=== PATIENT | female | born 1970 | race African-American/Black ===

== ENCOUNTER 2020-05-31 09:46 | Outpatient (REF) | payer MEDICAID, SELFPAY | END 2020-05-31 09:47 | disposition home or self-care (01) | LOC: HO.LAB 09:46 | PROVIDERS: PCP Internal Medicine Geriatric Medicine; Visit Provider Internal Medicine | DX: Z20.828 Contact with and (suspected) exposure to other viral communicable diseases (principal) | CPT/HCPCS: 87635 ==

== ENCOUNTER 2020-06-07 16:35 | Outpatient (REF) | payer MEDICAID, SELFPAY | END 2020-06-07 16:36 | disposition home or self-care (01) | LOC: HO.LAB 16:35 | PROVIDERS: Visit Provider Internal Medicine | DX: Z20.828 Contact with and (suspected) exposure to other viral communicable diseases (principal) | CPT/HCPCS: 87635 ==

== ENCOUNTER 2020-06-17 14:02 | Outpatient (REF) | payer MEDICAID, SELFPAY | END 2020-06-17 14:03 | disposition home or self-care (01) | LOC: HO.LAB 14:02 | PROVIDERS: PCP Internal Medicine Geriatric Medicine; Visit Provider Internal Medicine | DX: Z20.828 Contact with and (suspected) exposure to other viral communicable diseases (principal) | CPT/HCPCS: C9803; U0003 ==

== ENCOUNTER → 2020-09-09 15:33 | Outpatient (BNVA) | payer MEDICAID, SELFPAY | PROVIDERS: PCP Internal Medicine Geriatric Medicine; Visit Provider Hospitalist ==

== ENCOUNTER → 2020-09-23 13:47 | Outpatient (REF) | payer MEDICAID, SELFPAY | LOC: HO.SL 13:47 | PROVIDERS: PCP Internal Medicine Geriatric Medicine; Visit Provider Hospitalist | DX: Z13.89 Encounter for screening for other disorder (principal) ==

== ENCOUNTER 2021-09-24 17:53 | Emergency (ER) | payer MEDICAID, SELFPAY ==
--- NOTE | ~2021-09-24 | XR_ITS ---
EXAMINATION: XR sacrum coccyx min 2V, XR lumbar spine 2-3V CLINICAL INFORMATION: Pain COMPARISON: CT chest 07/21/2019 TECHNIQUE: 3 views of the lumbar spine. 3 views of the sacrum and coccyx were obtained. XR/XR lumbar spine 2-3V FINDINGS/IMPRESSION: 5 nonrib-bearing lumbar-type vertebral bodies. Lumbar body heights are maintained. Mild wedging of the thoracic vertebral bodies at the thoracolumbar junction however appears similar to prior CT chest. Grade 1 anterolisthesis of L5 on S1. Disc space heights are maintained. Lower lumbosacral facet arthropathy. Paravertebral soft tissues are unremarkable. No sacrococcygeal fracture. No fracture appreciated in the visualized pelvis.
--- NOTE | ~2021-09-24 | XR_ITS ---
EXAMINATION: XR sacrum coccyx min 2V, XR lumbar spine 2-3V CLINICAL INFORMATION: Pain COMPARISON: CT chest 07/21/2019 TECHNIQUE: 3 views of the lumbar spine. 3 views of the sacrum and coccyx were obtained. XR/XR sacrum coccyx min 2V FINDINGS/IMPRESSION: 5 nonrib-bearing lumbar-type vertebral bodies. Lumbar body heights are maintained. Mild wedging of the thoracic vertebral bodies at the thoracolumbar junction however appears similar to prior CT chest. Grade 1 anterolisthesis of L5 on S1. Disc space heights are maintained. Lower lumbosacral facet arthropathy. Paravertebral soft tissues are unremarkable. No sacrococcygeal fracture. No fracture appreciated in the visualized pelvis.
[2021-09-24 18:15] VITALS: BP 180/100; PULSE 89; RESP 24; TEMP 36.7; O2SAT 96; BMI 68.3
--- NOTE | 2021-09-24 20:45 | ED.BACK ---
HPI - Back Pain/Injury General Chief Complaint: Back Pain/Injury Stated Complaint: bad lower back pain Source: patient Mode of arrival: ambulatory Limitations: no limitations History of Present Illness HPI Narrative: 51-year-old female presents with left-sided sciatic pain that has been worsening over the past 2 days. Has had chronic lower back pain and states that now she has sciatica. MD elicited complaint: back pain Pertinent past history: prior back pain Onset (ago): month(s) Timing: constant Severity: moderate Pain scale (0-10): 8 Similar Symptoms Previously: Yes Quality: aching and tingling Location: lumbar spine and sacrum Radiation: left upper leg, right upper leg, left leg below the knee and right leg below the knee Exacerbating factors: movement and walking Relieving factors: none Associated symptoms: denies other symptoms Work related injury: No Related Data Previous Rx's Medication Instructions Recorded albuterol sulfate 90 mcg/actuation 2 puff PO Q6H PRN #8.5 g 09/29/20 aerosol inhaler (ProAir HFA) fluticasone propionate 50 2 spray INTRANASAL DAILY #16 g 09/29/20 mcg/actuation nasal spray,suspension montelukast 10 mg tablet 10 mg PO DAILY #30 tab 09/29/20 cyclobenzaprine 10 mg tablet 10 mg PO TID PRN #20 tab 09/24/21 Allergies Allergy/AdvReac Type Severity Reaction Status Date / Time No Known Allergies Allergy Verified 09/09/20 20:09 [No Known Allergies*] Review of Systems Review of Systems: Constitutional: No Fever, No Chills ENT/Mouth: No Ear Pain, No Hoarseness, No sore throat Eyes: No Eye Pain, No Swelling, No Redness, No Foreign Body Cardiovascular: No Chest Pain, No SOB Respiratory: No Cough, No Dyspnea Gastrointestinal: No Nausea, No Vomiting, No Diarrhea, No abdominal Pain Genitourinary: No Dysuria, No Hematuria Musculoskeletal: positive lower back pain with sciatica left-sided, No Myalgias, No Joint Swelling Skin: No Skin lacerations, No rash Neuro: No Weakness, No Numbness, No Paresthesias, No Loss of Consciousness, No Dizziness, No Headache Psych: No Anxiety/Panic, No Depression Heme/Lymph: no easy bruising, no Lymphadenopathy Endocrine: No Polyuria, No Polydipsia Yes all other systems are reviewed and are negative PMFSH Past Medical History Attestation statement: The following information was validated with the patient. Source: old records reviewed Medical History Asthma Obstructive sleep apnea syndrome Pulmonary nodule Social History Social History Advance Directives: No Advance Directives Information Provided: Yes Patient : No Physical Exam Vital Signs: Vital Signs: Last Vital Signs Temp 98.0 F 09/24/21 18:15 Pulse 89 09/24/21 18:15 Resp 24 H 09/24/21 18:15 BP 180/100 H 09/24/21 18:15 Pulse Ox 96 09/24/21 18:15 BMI result Body Mass Index 68.3 Appearance: Alert. Oriented X3. No acute distress. Morbidly obese. Eyes: Pupils equal, round and reactive to light. Sclera nonicteric. ENT: Pharynx normal. Moist mucous membranes. Neck: Normal inspection. Neck supple. No vertebral step-offs or tenderness noted. CVS: Normal heart rate and rhythm. Pulses normal. Respiratory: No respiratory distress. Breath sounds normal. Abdomen: Soft and nontender. Skin: Skin warm and dry. Normal skin color. Normal skin turgor. Extremities: No lower extremity edema. Moves all extremities against resistance. Neuro: No motor deficit. No sensory deficit. Cranial nerves 2-12 intact. Course Course Course Narrative: 51-year-old female presents with chronic lower back pain with left-sided sciatica. States that her pain is gotten worse over the past 2 days. States that she has numbness, tingling, and difficulty ambulating. She did not report any symptoms indicating cauda equina. Patient isneurovascularly intact, has brisk capillary refill and equal pulses to bilateral lower extremities. Patient is requesting pain medications. I did offer Tylenol, and cyclobenzaprine. Will order x-rays. X-rays indicate lumbar arthropathy, will refer to pain management for chronic lower back pain with sciatica. Patient's daughter utilized as diplomatic interpreter per patient's request. Google translate utilized for discharge instructions. Patient verbalized understanding of and agrees to plan of care discharge home. Patient verbalized understanding of signs and symptoms indicating need for emergent intervention. MDM - Back Pain/Injury Differential Diagnosis Differential diagnosis: Likely lumbar radiculopathy, sciatica and strain of lumbar region Medical Records Attestation: I reviewed the patient's medical records. Imaging Data Lumbar sacral x-ray: Attestation: I personally reviewed and interpreted this imaging study as follows: Radiologist's impression: EXAMINATION: XR sacrum coccyx min 2V, XR lumbar spine 2-3V CLINICAL INFORMATION: Pain COMPARISON: CT chest 07/21/2019 TECHNIQUE: 3 views of the lumbar spine. 3 views of the sacrum and coccyx were obtained. XR/XR lumbar spine 2-3V FINDINGS/IMPRESSION: ? 5 nonrib-bearing lumbar-type vertebral bodies. ? Lumbar body heights are maintained. Mild wedging of the thoracic vertebral bodies at the thoracolumbar junction however appears similar to prior CT chest. Grade 1 anterolisthesis of L5 on S1. ? Disc space heights are maintained. Lower lumbosacral facet arthropathy. ? Paravertebral soft tissues are unremarkable. ? No sacrococcygeal fracture. No fracture appreciated in the visualized pelvis. Discharge Plan Discharge Clinical Impression: Sciatica, Arthritis of facet joint of lumbar spine Patient Disposition: Home, Self-Care Instructions: Sciatica (ED) Additional Instructions: Le evaluaron por dolor lumbar y ci?jose. Sayda radiograf?as indican artritis lumbar inferior. Por favor, isac un seguimiento con el manejo del dolor. Te remit? al Dr. Marie. Por favor llame y solicite leslie darek. Le recet? ciclobenzaprina. Fabby medicamento es un relajante muscular. Fabby medicamento puede retrasar el tiempo de reacci?n, causar somnolencia y aumentar el riesgo de ca?basilio. No conduzca ni maneje maquinaria mientras lola fabby medicamento. Emre por elegir fabby departamento de emergencias para johnson evaluaci?n. Por favor, isac un seguimiento con el m?dico de atenci?n primaria seg?n sea necesario. Regrese al departamento de emergencias por cualquier s?ntoma nuevo, preocupante o que empeore You were evaluated for lower back pain and sciatica. Your x-rays indicate lower lumbar arthritis. Please follow-up with pain management. I referred you to Dr. Marie. Please call and request an appointment. I prescribed cyclobenzaprine. This medication is a muscle relaxer. This medication can delay reaction time, cause drowsiness, and increased risk for falls. Do not drive or operate machinery while taking this medication. Thank you for choosing this emergency department for evaluation. Please follow-up with primary care physician as needed. Return to the emergency department for any new, concerning, or worsening symptoms. Prescriptions: New cyclobenzaprine 10 mg tablet 10 mg PO TID PRN (Reason: muscle spasm) Qty: 20 0RF No Action fluticasone propionate 50 mcg/actuation spray,suspension 2 spray intranasal DAILY Qty: 16 0RF albuterol sulfate [ProAir HFA] 90 mcg/actuation HFA aerosol inhaler 2 puff PO Q6H PRN (Reason: for wheezing) Qty: 8.5 0RF montelukast 10 mg tablet 10 mg PO DAILY Qty: 30 0RF Referrals: Adam Marie MD [Physician] - 2 days (Lumbar arthropathy, sciatica) Interventions: ED Discharge Assessment Last Done: 09/24/21 22:09 Discharge Date/Time: 09/24/21 22:13
[2021-09-24] MEDS: Ketorolac Tromethamine 60 MG/2 ML VIAL IM (21:17)
[2021-09-24] MEDS: Cyclobenzaprine HCl 10 MG TABLET PO (21:17)
== END 2021-09-24 22:13 | disposition home or self-care (01) ==
PROVIDERS: Emergency Provider Emergency Medicine; PCP Internal Medicine Geriatric Medicine
DX: M54.42 Lumbago with sciatica, left side (principal); M47.816 Spondylosis without myelopathy or radiculopathy, lumbar region; G89.29 Other chronic pain
CPT/HCPCS: 72100; 72220; 96372; 99284; J1885

== ENCOUNTER → 2021-10-24 13:51 | Outpatient (BNVA) | payer MEDICAID, SELFPAY | PROVIDERS: PCP Internal Medicine Geriatric Medicine; Visit Provider Nurse Practitioner Family | DX: M47.27 Other spondylosis with radiculopathy, lumbosacral region (principal); M47.812 Spondylosis without myelopathy or radiculopathy, cervical region; M53.3 Sacrococcygeal disorders, not elsewhere classified; M17.0 Bilateral primary osteoarthritis of knee; M25.511 Pain in right shoulder; M25.512 Pain in left shoulder; E66.01 Morbid (severe) obesity due to excess calories; Z68.45 Body mass index [BMI] 70 or greater, adult | CPT/HCPCS: 99202 ==

== ENCOUNTER → 2022-09-11 13:37 | Outpatient (BNVA) | payer MEDICAID, SELFPAY | PROVIDERS: PCP Internal Medicine Geriatric Medicine; Visit Provider Physician Assistant | DX: E66.01 Morbid (severe) obesity due to excess calories (principal); G47.33 Obstructive sleep apnea (adult) (pediatric); J45.20 Mild intermittent asthma, uncomplicated; I10 Essential (primary) hypertension; Z68.44 Body mass index [BMI] 60.0-69.9, adult | CPT/HCPCS: 99202 ==

== ENCOUNTER 2022-09-14 13:14 | Outpatient (REF) | payer MEDICAID, SELFPAY ==
--- NOTE | ~2022-09-14 | MM_ITS ---
EXAMINATION: MM SCREENING DIGITAL BREAST TOMOSYNTHESIS, BILATERAL CLINICAL INFORMATION: Screening. Asymptomatic. The lifetime risk of breast cancer based on the Tyrer-Cuzick Model is 5.8%. COMPARISON: Mammography: March 15, 2019 and June 29, 2017 TECHNIQUE: Digital breast tomosynthesis is performed in both the craniocaudal and mediolateral oblique views along with computer-aided detection (CAD). Synthesized 2D images are generated from the tomosynthesis. Additional bilateral exaggerated craniocaudal views performed. FINDINGS: The breasts are almost entirely fatty (ACR BI-RADS breast composition Category a). There are no significant masses, abnormal calcifications, or other abnormalities. MM/MM tomosynthesis screening BI IMPRESSION: No significant changes from prior exam. ASSESSMENT: BI-RADS 1: Negative RECOMMENDATION: Routine annual mammography screening. This patient's information was entered into a reminder system with a target due date for their next mammogram.
--- NOTE | ~2022-09-14 | US_ITS ---
EXAMINATION: US PELVIS CLINICAL INFORMATION: Pelvic and perineal pain. COMPARISON: None. TECHNIQUE: Ultrasound of the pelvis is performed using both transabdominal and transvaginal transducers along with Doppler. Transvaginal imaging is performed due to inadequate visualization transabdominally. FINDINGS: UTERUS: The uterus is anteverted and measures 9.7 x 5.7 x 4.9 cm. The double wall endometrial thickness is 0.7 mm. The uterus is smooth in contour and has normal myometrial echogenicity. No visible fibroid. A tiny bit of free fluid was noted in the cervical canal along with some small nabothian cysts. ADNEXA: Neither ovary could be seen. US/US pelvic and transvaginal IMPRESSION: Normal-appearing uterus. Neither ovary could be seen.
== END 2022-09-14 13:15 | disposition home or self-care (01) ==
LOC: HO.US 13:14
PROVIDERS: Visit Provider Advanced Practice Midwife
DX: Z12.31 Encounter for screening mammogram for malignant neoplasm of breast (principal); R10.2 Pelvic and perineal pain
CPT/HCPCS: 76830; 76856; 77063; 77067

== ENCOUNTER → 2022-09-25 14:30 | Outpatient (BNVA) | payer MEDICAID, SELFPAY | PROVIDERS: PCP Internal Medicine Geriatric Medicine; Visit Provider Physician Assistant | DX: Z13.89 Encounter for screening for other disorder (principal) ==

== ENCOUNTER → 2022-11-10 09:11 | Outpatient (BNVA) | payer MEDICAID, SELFPAY | PROVIDERS: PCP Internal Medicine Geriatric Medicine; Referring Provider Internal Medicine Geriatric Medicine; Visit Provider Physician Assistant | DX: H40.9 Unspecified glaucoma (principal); Z68.44 Body mass index [BMI] 60.0-69.9, adult | CPT/HCPCS: 99212 ==

== ENCOUNTER → 2022-12-14 14:34 | Outpatient (BNVA) | payer MEDICAID, SELFPAY | PROVIDERS: PCP Internal Medicine Geriatric Medicine; Visit Provider Hospitalist | DX: G47.33 Obstructive sleep apnea (adult) (pediatric) (principal); J45.20 Mild intermittent asthma, uncomplicated; R91.1 Solitary pulmonary nodule | CPT/HCPCS: 99212 ==

== ENCOUNTER 2022-12-15 13:04 | Outpatient (REF) | payer MEDICAID, SELFPAY ==
[2022-12-16 14:20] LABS: BV Int Neg Control Negative (Negative); BV Int Pos Control Positive (Positive)
== END 2022-12-15 13:05 | disposition home or self-care (01) ==
LOC: HO.LNP 13:04
PROVIDERS: PCP Internal Medicine Geriatric Medicine; Visit Provider Advanced Practice Midwife
DX: R10.2 Pelvic and perineal pain (principal); M79.10 Myalgia, unspecified site; N89.8 Other specified noninflammatory disorders of vagina
CPT/HCPCS: 87480; 87510; 87660; 99202

== ENCOUNTER → 2022-12-26 13:44 | Outpatient (REF) | payer MEDICAID, SELFPAY | LOC: HO.SL 13:44 | PROVIDERS: PCP Internal Medicine Geriatric Medicine; Visit Provider Hospitalist | DX: G47.33 Obstructive sleep apnea (adult) (pediatric) (principal) | CPT/HCPCS: 95806 ==

== ENCOUNTER 2023-03-20 09:33 | Outpatient (AMB) | payer MEDICAID, SELFPAY ==
[2023-03-20 09:39] VITALS: PULSE 78; O2SAT 99; BMI 64.1
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
== END 2023-03-20 10:08 | disposition home or self-care (01) ==
PROVIDERS: PCP Internal Medicine Geriatric Medicine; Visit Provider Hospitalist
DX: G47.33 Obstructive sleep apnea (adult) (pediatric) (principal); J45.20 Mild intermittent asthma, uncomplicated; R91.1 Solitary pulmonary nodule
CPT/HCPCS: 99214

== ENCOUNTER → 2023-03-20 09:33 | Outpatient (BNVA) | payer MEDICAID, SELFPAY | PROVIDERS: PCP Internal Medicine Geriatric Medicine; Visit Provider Hospitalist | DX: G47.33 Obstructive sleep apnea (adult) (pediatric) (principal); J45.20 Mild intermittent asthma, uncomplicated; R91.1 Solitary pulmonary nodule | CPT/HCPCS: 99212 ==

== ENCOUNTER 2023-04-13 12:27 | Outpatient (REF) | payer MEDICAID, SELFPAY ==
[2023-04-13 14:57] LABS: Anion Gap 16 (12-20); Blood Urea Nitrogen 15 mg/dL (9-16); Calcium 9.7 mg/dL (8.4-10.2); Carbon Dioxide 25 mmol/L (22-29); Chloride 104 mmol/L (96-108); Estimated Glomerular Filt Rate > 60; Glucose Random 141 mg/dL (60-115); Potassium 3.6 mmol/L (3.3-5.1); Sodium 141 mmol/L (135-145)
== END 2023-04-13 12:28 | disposition home or self-care (01) ==
LOC: HO.HHCL 12:27
PROVIDERS: Visit Provider Internal Medicine Geriatric Medicine
DX: I10 Essential (primary) hypertension (principal)
CPT/HCPCS: 36415; 80048

== ENCOUNTER 2023-08-16 10:51 | Outpatient (AMB) | payer MEDICAID, SELFPAY ==
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
[2023-08-16 11:08] VITALS: PULSE 81; O2SAT 98; BMI 64.1
== END 2023-08-16 11:39 | disposition home or self-care (01) ==
PROVIDERS: PCP Internal Medicine Geriatric Medicine; Visit Provider Hospitalist
DX: G47.33 Obstructive sleep apnea (adult) (pediatric) (principal); J45.20 Mild intermittent asthma, uncomplicated; R91.1 Solitary pulmonary nodule
CPT/HCPCS: 99214

== ENCOUNTER → 2023-08-16 10:51 | Outpatient (BNVA) | payer MEDICAID, SELFPAY | PROVIDERS: PCP Internal Medicine Geriatric Medicine; Visit Provider Hospitalist | DX: G47.33 Obstructive sleep apnea (adult) (pediatric) (principal); J45.20 Mild intermittent asthma, uncomplicated; R91.1 Solitary pulmonary nodule | CPT/HCPCS: 99212 ==

== ENCOUNTER 2023-09-20 11:00 | Outpatient (REF) | payer MEDICAID, SELFPAY | END 2023-09-20 11:01 | disposition home or self-care (01) | LOC: HO.MAMMO 11:00 | PROVIDERS: PCP Internal Medicine Geriatric Medicine; Visit Provider Internal Medicine Geriatric Medicine | DX: Z12.31 Encounter for screening mammogram for malignant neoplasm of breast (principal) | CPT/HCPCS: 77063; 77067 ==

== ENCOUNTER → 2023-09-20 11:00 | Outpatient (BNV) | payer MEDICAID, SELFPAY | PROVIDERS: PCP Internal Medicine Geriatric Medicine; Visit Provider Radiology Diagnostic Radiology | DX: Z12.31 Encounter for screening mammogram for malignant neoplasm of breast (principal) | CPT/HCPCS: 77063; 77067 ==

== ENCOUNTER 2023-12-06 08:42 | Outpatient (REF) | payer MEDICAID, SELFPAY | END 2023-12-06 08:43 | disposition home or self-care (01) | LOC: HO.SH 08:42 | PROVIDERS: Visit Provider Internal Medicine Geriatric Medicine | DX: Z01.118 Encounter for examination of ears and hearing with other abnormal findings (principal); H90.3 Sensorineural hearing loss, bilateral | CPT/HCPCS: 92552; 92556; 92567 ==

== ENCOUNTER 2024-02-12 13:39 | Outpatient (AMB) | payer MEDICAID, SELFPAY ==
[2024-02-12 13:53] VITALS: PULSE 70; O2SAT 99; BMI 64.1
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
== END 2024-02-12 14:24 | disposition home or self-care (01) ==
PROVIDERS: PCP Internal Medicine Geriatric Medicine; Visit Provider Hospitalist
DX: G47.33 Obstructive sleep apnea (adult) (pediatric) (principal); J45.20 Mild intermittent asthma, uncomplicated; R91.1 Solitary pulmonary nodule
CPT/HCPCS: 99214

== ENCOUNTER → 2024-02-12 13:39 | Outpatient (BNVA) | payer MEDICAID, SELFPAY | PROVIDERS: PCP Internal Medicine Geriatric Medicine; Visit Provider Hospitalist | DX: J45.20 Mild intermittent asthma, uncomplicated (principal); R91.1 Solitary pulmonary nodule; G47.33 Obstructive sleep apnea (adult) (pediatric); E66.01 Morbid (severe) obesity due to excess calories; Z68.44 Body mass index [BMI] 60.0-69.9, adult | CPT/HCPCS: 99212 ==

== ENCOUNTER 2024-02-20 10:38 | Outpatient (REF) | payer MEDICAID, SELFPAY ==
[2024-02-20 12:58] LABS: MANUAL DIFF FLAG NO
[2024-02-20 13:25] LABS: Basophils Percent Auto 0.6 % (0-2); Eosinophils Absolute Auto 0.1 X10*3/uL (0.0-0.4); Eosinophils Percent Auto 1.4 % (0-4); Hematocrit 35.2 % (37.0-47.0); Hemoglobin 11.5 g/dl (12.0-16.0); Imm Gran Abs Auto 0.04 X10*3/uL (0.00-0.03); Imm Gran Pct Auto 0.8 % (0.0-0.4); Lymphocytes Absolute Auto 1.7 X10*3/uL (1.2-4.9); Lymphocytes Percent Auto 32.5 % (20-40); Mean Corpuscular HGB Conc 32.7 g/dl (31.0-35.0); Mean Corpuscular Hemoglobin 26.7 pg (27.0-33.0); Mean Corpuscular Volume 81.9 fL (80.0-98.0); Mean Platelet Volume 10.6 fL (9.4-12.3); Monocytes Absolute Auto 0.4 X10*3/uL (0.1-1.2); Monocytes Percent Auto 7.7 % (2-11); Neutrophils Absolute Auto 2.9 x10*3/uL (2.0-8.3); Platelet Count 218 X10*3/uL (160-400); White Blood Count 5.1 X10*3/uL (4.8-10.8)
[2024-02-20 13:34] LABS: Alanine Aminotransferase 12 U/L (0-31); Albumin Level 3.6 g/dL (3.5-5.0); Alkaline Phosphatase 95 U/L (39-117); Anion Gap 9 (12-20); Aspartate Amino Transferase 12 U/L (5-31); Bilirubin Total 0.6 mg/dL (0.0-1.0); Blood Urea Nitrogen 10 mg/dL (9-16); Calcium 8.9 mg/dL (8.4-10.2); Carbon Dioxide 30 mmol/L (22-29); Chloride 105 mmol/L (96-108); Cholesterol 181 mg/dL (<200); Estimated Glomerular Filt Rate > 60; Glucose Random 119 mg/dL (60-115); HDL Cholesterol 37 mg/dL (>40); LDL Cholesterol Calculated 117 mg/dL (<100); Potassium 3.4 mmol/L (3.3-5.1); Sodium 141 mmol/L (135-145); Total Protein 6.5 g/dL (6.5-8.0); Triglycerides 136 mg/dL (<150)
== END 2024-02-20 10:39 | disposition home or self-care (01) ==
LOC: HO.HHCL 10:38
PROVIDERS: Visit Provider Internal Medicine Geriatric Medicine
DX: I10 Essential (primary) hypertension (principal); E78.00 Pure hypercholesterolemia, unspecified; M15.3 Secondary multiple arthritis; H54.8 Legal blindness, as defined in USA; E66.01 Morbid (severe) obesity due to excess calories
CPT/HCPCS: 36415; 80053; 80061; 85025

== ENCOUNTER → 2024-04-01 12:23 | Outpatient (REF) | payer MEDICAID, SELFPAY | LOC: HO.SL 12:23 | PROVIDERS: PCP Internal Medicine Geriatric Medicine; Visit Provider Hospitalist | DX: Z13.89 Encounter for screening for other disorder (principal) ==

== ENCOUNTER 2024-05-07 09:48 | Outpatient (AMB) | payer MEDICAID, SELFPAY ==
[2024-05-07 09:58] VITALS: BP 128/70; PULSE 92; O2SAT 100; BMI 62.1
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
== END 2024-05-07 10:31 | disposition home or self-care (01) ==
PROVIDERS: PCP Internal Medicine Geriatric Medicine; Visit Provider Hospitalist
DX: G47.33 Obstructive sleep apnea (adult) (pediatric) (principal); J45.20 Mild intermittent asthma, uncomplicated; R91.1 Solitary pulmonary nodule
CPT/HCPCS: 99214

== ENCOUNTER 2024-05-07 09:48 | Outpatient (REF) | payer MEDICAID, SELFPAY ==
--- NOTE | ~2024-05-07 | XR_ITS ---
EXAMINATION: XR CHEST CLINICAL INFORMATION: M54.9 - Dorsalgia, unspecified COMPARISON: X-ray dated October 04, 2018 TECHNIQUE: 2 views of the chest were obtained. FINDINGS: Elevated left hemidiaphragm. No consolidation, pleural fissure pneumothorax. Low volume left lung. Cardiomediastinal silhouette overlaps the left hemithorax, unchanged. Multilevel thoracic spondylosis. Degenerative changes in the shoulders. XR/XR chest 2V IMPRESSION: Stable chest without acute airspace disease. 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 Electronically signed by: Oscar Parsons MD 07/14/2024 03:16 PM [facility]
== END 2024-05-07 09:49 | disposition home or self-care (01) ==
LOC: HO.XRAY 09:48
PROVIDERS: PCP Internal Medicine Geriatric Medicine; Visit Provider Hospitalist
DX: R91.1 Solitary pulmonary nodule (principal); G47.33 Obstructive sleep apnea (adult) (pediatric); J45.20 Mild intermittent asthma, uncomplicated; M54.9 Dorsalgia, unspecified
CPT/HCPCS: 71046; 99212

== ENCOUNTER → 2024-05-07 10:41 | Outpatient (BNV) | payer MEDICAID, SELFPAY | PROVIDERS: PCP Internal Medicine Geriatric Medicine; Visit Provider Radiology Diagnostic Radiology | DX: M54.9 Dorsalgia, unspecified (principal) | CPT/HCPCS: 71046 ==

== ENCOUNTER 2024-05-27 15:57 | Outpatient (REF) | payer MEDICAID, SELFPAY ==
[2024-05-27 16:27] LABS: MANUAL DIFF FLAG NO
[2024-05-27 16:48] LABS: Basophils Percent Auto 0.4 % (0-2); Eosinophils Absolute Auto 0.1 X10*3/uL (0.0-0.4); Eosinophils Percent Auto 0.7 % (0-4); Hemoglobin 12.8 g/dl (12.0-16.0); Imm Gran Abs Auto 0.05 X10*3/uL (0.00-0.03); Imm Gran Pct Auto 0.7 % (0.0-0.4); Lymphocytes Absolute Auto 1.7 X10*3/uL (1.2-4.9); Lymphocytes Percent Auto 24.5 % (20-40); Mean Corpuscular Hemoglobin 26.6 pg (27.0-33.0); Mean Platelet Volume 10.2 fL (9.4-12.3); Monocytes Absolute Auto 0.6 X10*3/uL (0.1-1.2); Monocytes Percent Auto 9.4 % (2-11); Neutrophils Absolute Auto 4.4 x10*3/uL (2.0-8.3); Neutrophils Percent Auto 64.3 % (45-73); Platelet Count 258 X10*3/uL (160-400); Red Blood Count 4.82 X10*6/uL (4.20-5.50); Red Cell Distribution Width 13.4 % (11.0-16.0); White Blood Count 6.8 X10*3/uL (4.8-10.8)
[2024-05-27 17:42] LABS: Anion Gap 13 (12-20); Blood Urea Nitrogen 23 mg/dL (9-16); Calcium 9.7 mg/dL (8.4-10.2); Carbon Dioxide 27 mmol/L (22-29); Chloride 105 mmol/L (96-108); Estimated Glomerular Filt Rate > 60; Glucose Random 118 mg/dL (60-115); Potassium 4.2 mmol/L (3.3-5.1); Sodium 141 mmol/L (135-145)
== END 2024-05-27 15:58 | disposition home or self-care (01) ==
LOC: HO.HHCL 15:57
PROVIDERS: Visit Provider Internal Medicine Geriatric Medicine
DX: Z51.81 Encounter for therapeutic drug level monitoring (principal); Z79.1 Long term (current) use of non-steroidal anti-inflammatories (NSAID)
CPT/HCPCS: 36415; 80048; 85025

== ENCOUNTER 2024-08-01 09:35 | Outpatient (AMB) | payer MEDICAID, SELFPAY ==
[2024-08-01 09:40] VITALS: BP 160/100; PULSE 82; O2SAT 97
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
== END 2024-08-01 10:15 | disposition home or self-care (01) ==
PROVIDERS: PCP Internal Medicine Geriatric Medicine; Visit Provider Hospitalist
DX: G47.33 Obstructive sleep apnea (adult) (pediatric) (principal); J45.20 Mild intermittent asthma, uncomplicated; R91.1 Solitary pulmonary nodule
CPT/HCPCS: 99214

== ENCOUNTER → 2024-08-01 09:35 | Outpatient (BNVA) | payer MEDICAID, SELFPAY | PROVIDERS: PCP Internal Medicine Geriatric Medicine; Visit Provider Hospitalist | DX: J45.20 Mild intermittent asthma, uncomplicated (principal); G47.33 Obstructive sleep apnea (adult) (pediatric); R91.1 Solitary pulmonary nodule; Z99.89 Dependence on other enabling machines and devices | CPT/HCPCS: 99212 ==

== ENCOUNTER → 2024-09-15 13:54 | Outpatient (REF) | payer MEDICAID, SELFPAY ==
--- OUTSIDE RECORDS SUMMARY | 2024-09-15 15:26 | XMS_ITS | Encounter Summary ---
Author Organization [employer] Address [address] [facility] 7t [place] [address] Care Team Providers Care Revising Clerk Name Role Phone Name, Shashi JONES Primary Care Provider [phone] Reason for Visit * Reason Onset Date Comments Pa 09/10/2024 Encounter Details Date Type Department Care Team ([facility] st Contact Info) Description 09/10/2024 Telephone [facility] [address] [place], [place] [phone] Name, MD Shashi [address] [place] [address] Pa Social History Tobacco Use Types Packs/Day Years Used Date Smoking Tobacco: Never Alcohol Use Standard Drinks/Week Comments Never 0 (1 standard drink = 0.6 oz pur e alcohol) Alcohol Answer Date Recorded Frequency of Alcohol Consumption Not on file 02/21/2024 Average Number of Drinks Not on file 024 Frequency of Binge Drinking Not on file 02/10 Score 0 02/21/2024 Depression Answer Date Recorded Patient Health Questionnaire-9 Score 9 11/09/2023 Patient Health Questionnaire-9 Score 9 11/09/2023 Last PHQ-9: Questionnaire Data Not on file 0 11/09/2023 Housing Stability Answer Date Recorded What is your housing situation today? I have mike brewster 06/01/[address] you li ve. Do you have problems with any of the following? None of the above 06/01/2023 Food Insecurity Answer Date Recorded Within the past 12 months, y ou worried that your food would run out before you got money to buy more: Never True 06/01/2023 Within the past 12 months,th e food you bought just didn't last and you didn't have enough money to get more: Never True Transportation Answer Date Recorded In the past 12 months, has l ack of transportation kept you from medical appts, meetings, work or from getting things needed for daily living? No 06/01/2023 Utilities Answer Date Recorded In the past 12 months, has t he electric, gas, oil or water company threatened to shut off services in your home? No 06/01/2023 Depression Answer Date Recorded Patient Health Questionnaire-2 Score 4 11/09/2023 Comments Unknown Sex and Gender Information Value Date Recorded Sex Assigned at Female 06/12/2022 10:15 AM EDT Legal Sex Female 10:15 AM EDT Gender Identity Female 06/12/2022 10:15 AM EDT Sexual Orientation Straight 06/12/2022 10 :15 AM EDT documented as of this encounter Miscellaneous Notes * Telephone Encounter - Karma Rose - 09/10/2024 10:15 AM EST TC from pt stating need a PA for medication Wegovy 1.7mg. PCP DR. Salmon documented in this encounter Plan of Treatment Upcoming Encounters Date Type Department Care Team (Late st Contact Info) Description 10/08/2024 2:00 PM EST Office Visit [address] [address] Name, MD Shashi [address] [place] [address] 10/17/2024 2:00 PM EST Telemedicine [address] [address] Hannah Cevallos, NATALIE documented as of this encounter Goals Goal Patient Goal Type Associated Problems Recent Progress Patient-Stated? Author Blood Pressure < 140/90 Blood Pressure 141/89( 024 3:05 PM EDT) No Puia, Jamilah, PharmD Record your blood pressure once per day Blood Pressure No Puia, Jamilah, PharmD documented as of this encounter Visit Diagnoses Not on filedocumented in this encounter Additional Health Concerns Assessment Noted Time PHQ-9 Depression Total Score: 9 11/09/19 24 11:20 AM EDT documented as of this encounter Care Teams Revising Clerk Relationship Specialty Start Date End Date Name, MD Shashi [address] [place] [address] PCP - General Family Medicine 06/27/17 Moriah Goldstein Eligibility ConsultantShirt Presser 01/10/24 documented as of this encounter
--- OUTSIDE RECORDS SUMMARY | 2024-09-15 15:27 | XMS_ITS | Encounter Summary ---
Author Organization [employer] Address [address] [facility] [address]t [place] [address] Care Team Providers Care Associate Merchandiser Name Role Phone Name, Shashi JONES Primary Care Provider Jamilah Arreola PharmD Unavailable [phone] Reason for Visit * Reason Comments Med Refill Encounter Details Date Type Department Care Team ([facility] st Contact Info) Description 03/26/2024 Refill [facility] [address] [place], [place] [phone] Name, MD Shashi [address] [place] [address] Mixed anxiety and depressive disorder Social History Tobacco Use Types Packs/Day Years [...] the past 12 months, has t he [employer], gas, oil or water company threatened to [...] AM EDT documented as of this encounter Plan of Treatment Upcoming Encounters Date Type Department Care Team (Late st Contact Info) Description 10/08/2024 2:00 PM EST Office Visit [address] [address] NameShashi MD [address] [place] [address] 10/17/2024 2:00 PM EST Telemedicine [address] [address] Hannah Cevallos, RN documented as of this encounter Goals Goal Patient Goal Type Associated Problems Recent Progress Patient-Stated? Author Blood Pressure < 140/90 Blood Pressure 141/89( 024 3:05 PM EDT) No Puia, Jamilah, PharmD Record your blood pressure once per day Blood Pressure No Puia, Jamilah, PharmD documented as of this encounter Visit Diagnoses Diagnosis Mixed anxiety and depressive disorder Dysthymic disorder documented in this encounter Additional Health Concerns Assessment Noted Time PHQ-9 Depression Total Score: 9 11/09/19 24 11:20 AM EDT documented as of this encounter Care Teams Associate Merchandiser Relationship Specialty Start Date End Date Shashi Salmon MD [address] [place] [address] PCP - General Family Medicine 06/27/17 Jamilah Arreola PharmD [address] [place] [address] Pharmacist Internal Medicine 08/02/23 04/30/24 Moriah Goldstein Tanker Service AttendantPractice Nurse 01/10/24 documented as of this encounter
--- OUTSIDE RECORDS SUMMARY | 2024-09-15 15:27 | XMS_ITS | Encounter Summary ---
Author Organization [employer] Address [address] [facility] [address] [place] [address] Care Team Providers Care Custom Seamstress Name Role Phone Name, Shashi JONES Primary Care Provider [phone] Reason for Visit * Reason Comments Med Refill Encounter Details Date Type Department Care Team ([facility] Contact Info) Description 08/31/2024 Refill [facility] [address] [place], [place] [phone] Name, MD Shashi [address] [place] [address] Other chronic pain; Mixed anxiety and depressive disorder; Chronic anxiety Social History Tobacco Use Types Packs/Day Years [...] Description 10/08/2024 2:00 PM EST Office Visit [address] [address] Shashi Salmon MD [address] [place] [address] 10/17/2024 2:00 PM EST Telemedicine [address] [address] Hannah Cevallos RN documented as of this encounter Goals Goal Patient Goal Type Associated Problems Recent Progress Patient-Stated? Author Blood Pressure < 140/90 Blood Pressure 141/89( 024 3:05 PM EDT) No Puia, Jamilah, PharmD Record your blood pressure once per day Blood Pressure No Puia, Jamilah, PharmD documented as of this encounter Visit Diagnoses Diagnosis Other chronic pain Mixed anxiety and depressive disorder Dysthymic disorder Chronic anxiety Anxiety state, unspecified documented in this encounter Additional Health Concerns Assessment Noted Time PHQ-9 Depression Total Score: 9 11/09/19 24 11:20 AM EDT documented as of this encounter Care Teams Custom Seamstress Relationship Specialty Start Date End Date Shashi Salmon MD [address] [place] [address], [place] [address] PCP - General Family Medicine 06/27/17 Moriah Goldstein Stitcher Set Up Operator AutomaticSuperintendent Plant Protection 01/10/24 documented as of this encounter
--- OUTSIDE RECORDS SUMMARY | 2024-09-15 15:27 | XMS_ITS | Encounter Summary ---
Author Organization [facility] Address [address] [place] [address] [place] [address] Care Team Providers Care Frame Bander Name Role Phone Name, Shashi JONES Primary Care Provider Jamilah Arreola PharmD Unavailable [phone] Reason for Visit * Reason Comments Med Refill Encounter Details Date Type Department Care Team (Late st Contact Info) Description 10/11/2022 Refill [facility] [address] [place] [address] Shashi Salmon MD [address] [place] [address] Mixed anxiety and depressive disorder Social History Tobacco Use Types Packs/Day Years Used Date Smoking Tobacco: Never Assessed Comments Unknown Sex and Gender Information Value [...] Description 10/08/2024 2:00 PM EST Office Visit [facility] [address] [place] [address] [phone] Shashi Salmon MD [address] [place] [address] 10/17/2024 2:00 PM EST Telemedicine [facility] [address] [place] [address] [phone] Hannah Cevallos, RN documented as of this encounter Visit Diagnoses Diagnosis Mixed anxiety and depressive disorder Dysthymic disorder documented in this encounter Care Teams Frame Bander Relationship Specialty Start Date End Date Name, MD Shashi [address] [place] [address] PCP - General Family Medicine 06/27/17 Jamilah Arreola PharmD [address] [place] [address] Pharmacist Internal Medicine 08/02/23 04/30/24 Moriah Goldstein Rn CompliancePostpartum Rn 01/10/24 documented as of this encounter
--- OUTSIDE RECORDS SUMMARY | 2024-09-15 15:27 | XMS_ITS | Encounter Summary ---
Author Organization [employer] [facility] Address [address] [place] [address] 7 [place] [address] Care Team Providers Care Clay Mine Cutting Machine Operator Name Role Phone NameShashi MD Primary Care Provider [phone] Jamilah Arreola PharmD Unavailable Reason for Visit * Reason Comments Med Refill Encounter Details Date Type Department Care Team (Late Contact Info) Description 12/27/[address] [facility] [address] [place] [address] Shashi Salmon MD [address] [place] [address] Mixed anxiety and depressive disorder Social History Tobacco Use Types Packs/Day Years Used Date Smoking Tobacco: Never Comments Unknown Sex and Gender Information Value Date Recorded Sex Assigned at Female 06/12/2022 10:15 AM EDT Legal Sex Female 10:15 AM EDT Gender Identity Female 06/12/2022 10:15 AM EDT Sexual Orientation Straight 06/12/2022 10 :15 AM EDT COVID-19 Exposure Response Date Recorded In the last 10 days, have yo u been in contact with someone who was confirmed or suspected to have Coronavirus/COVID-19? No / Unsure 12/08/2022 10:19 AM EDT documented as of this encounter Plan of Treatment Upcoming Encounters Date Type Department Care Team (Late st Contact Info) Description 10/08/2024 2:00 PM EST Office Visit [facility] [address] [place] [address] [phone] Shashi Salmon MD [address] [place] [address] 10/17/2024 2:00 PM EST Telemedicine [facility] [address] [place] [address] [phone] Hannah Cevallos, RN documented as of this encounter Visit Diagnoses Diagnosis Mixed anxiety and depressive disorder Dysthymic disorder documented in this encounter Additional Health Concerns Assessment Noted Time PHQ-9 Depression Total Score: 6 12/12/19 23 3:34 PM EDT documented as of this encounter Care Teams Clay Mine Cutting Machine Operator Relationship Specialty Start Date End Date Name, MD Shashi [address] [place] [address] PCP - General Family Medicine 06/27/17 Jamilah Arreola PharmD [address] [place] [address] Pharmacist Internal Medicine 08/02/23 04/30/24 Moriah Goldstein Photovoltaic Fabrication TechnicianSanforizing Machine Operator 01/10/24 documented as of this encounter
--- OUTSIDE RECORDS SUMMARY | 2024-09-15 15:27 | XMS_ITS | Encounter Summary ---
Author Organization [employer] Address [address] [facility] 7t [place] [address] Care Team Providers Care Rf Test Engineer Name Role Phone Name, Shashi JONES Primary Care Provider [phone] Reason for Visit * Reason Onset Date Comments telephone call 08/27/2024 Encounter Details Date Type Department Care Team ([facility] st Contact Info) Description 08/27/2024 Telephone [facility] [address] [place], [place] [phone] Hannah Cevallos, NATALIE telephone call Social History Tobacco Use Types Packs/Day Years [...] encounter Miscellaneous Notes * Telephone Encounter - Krystal Leonor - 08/27/2024 1:54 PM EST Fd called pt at 1:56 pm to let her know that there is documents waiting to be picked up pt said locwimallory pick them up on 08/28/2024. documented in this encounter Plan of Treatment Upcoming Encounters Date Type Department Care Team (Late st Contact Info) Description 10/08/2024 2:00 PM EST Office Visit [facility] [address] [place] [phone] Name, MD Shashi [address] [place] [address] 10/17/2024 2:00 PM EST Telemedicine [facility] [address] [place] [address] Hannah Cevallos RN documented as of this encounter Goals Goal Patient Goal Type Associated Problems Recent Progress Patient-Stated? Author Blood Pressure < 140/90 Blood Pressure 141/89( 024 3:05 PM EDT) No PuiaCrescencioJamilah, PharmD Record your blood pressure once per day Blood Pressure No Jamilah Arreola, PharmD documented as of this encounter Visit Diagnoses Not on filedocumented in this encounter Additional Health Concerns Assessment Noted Time PHQ-9 Depression Total Score: 9 11/09/19 24 11:20 AM EDT documented as of this encounter Care Teams Rf Test Engineer Relationship Specialty Start Date End Date Name, MD Shashi [address] [place] [address] PCP - General Family Medicine 06/27/17 Moriah Goldstein Lavender Farm WorkerContinuity Director 01/10/24 documented as of this encounter
--- OUTSIDE RECORDS SUMMARY | 2024-09-15 15:27 | XMS_ITS | Encounter Summary ---
Author Organization [employer] Address [address] [facility] 7t [place] [address] Care Team Providers Care Coding Consultant Name Role Phone Name, Shashi JONES Primary Care Provider [phone] Jamilah Arreola PharmD Unavailable [phone] Reason for Visit * Reason Comments Med Refill Encounter Details Date Type Department Care Team ([facility] st Contact Info) Description 03/17/2024 Refill [facility] [address] [place], [place] [phone] Name, MD Shashi [address] [place] [address] Mixed anxiety and depressive disorder; Other chronic pain Social History Tobacco Use Types Packs/Day Years [...] the past 12 months, has t he [employer], gas, oil or water [employer] threatened to shut off services in your [...] Description 10/08/2024 2:00 PM EST Office Visit [address] [address] Shashi Salmon MD [address] [place] [address] 10/17/2024 2:00 PM EST Telemedicine [address] [address] Hannah Cevallos, NATALIE documented as of this encounter Goals Goal Patient Goal Type Associated Problems Recent Progress Patient-Stated? Author Blood Pressure < 140/90 Blood Pressure 141/89( 024 3:05 PM EDT) No Puia, Jamilah, PharmD Record your blood pressure once per day Blood Pressure No Puia, Jamilah, PharmD documented as of this encounter Visit Diagnoses Diagnosis Mixed anxiety and depressive disorder Dysthymic disorder Other chronic pain documented in this encounter Additional Health Concerns Assessment Noted Time PHQ-9 Depression Total Score: 9 11/09/19 24 11:20 AM EDT documented as of this encounter Care Teams Coding Consultant Relationship Specialty Start Date End Date Shashi Salmon MD [address] [place], [place] [phone] PCP - General Family Medicine 06/27/17 Jamilah Arreola PharmD [address] [place], [place] [phone] Pharmacist Internal Medicine 08/02/23 04/30/24 Moriah Goldstein Business Objects ArchitectRefrigerator Cabinetmaker 01/10/24 documented as of this encounter
--- OUTSIDE RECORDS SUMMARY | 2024-09-15 15:27 | XMS_ITS | Encounter Summary ---
Author Organization [employer] Address [address] [facility] 7t [place] [address] Care Team Providers Care Security Chief Museum Name Role Phone Name, Shashi JONES Primary Care Provider Jamilah Arreola PharmD Unavailable [phone] Reason for Visit * Reason Comments Med Refill Encounter Details Date Type Department Care Team ([facility] st Contact Info) Description 01/04/2024 Refill [facility] [address] [place], [place] [phone] Name, MD Shashi [address] [place] [address] Mixed anxiety and depressive disorder; Other chronic pain Social History Tobacco Use Types Packs/Day Years Used Date Smoking Tobacco: Never Alcohol Use Standard Drinks/Week Comments Never 0 (1 standard drink = 0.6 oz pur e alcohol) Depression Answer Date Recorded Patient Health Questionnaire-9 [...] Description 10/08/2024 2:00 PM EST Office Visit [facility] [address] [place] [address] NameShashi MD [address] [place] [address] 10/17/2024 2:00 PM EST Telemedicine [address] [address] Hannah Cevallos, NATALIE documented as of this [...] documented as of this encounter Care Teams Security Chief Museum Relationship Specialty Start Date End Date Shashi Salmon MD [address] [place] [address] PCP - General Family Medicine 06/27/17 Puia, Jamilah, PharmD [address] [place] [address] Pharmacist Internal Medicine 08/02/23 04/30/24 Moriah Goldstein Director Aeronautics CommissionWares Sorter 01/10/24 documented as of this encounter
--- OUTSIDE RECORDS SUMMARY | 2024-09-15 15:27 | XMS_ITS | Encounter Summary ---
Author Organization [facility] Address [address] [facility] 7t [place] [address] Care Team Providers Care Shank Boner Name Role Phone Name, Shashi JONES Primary Care Provider [phone] Jamilah Arreola PharmD Unavailable [phone] Reason for Visit * Reason Onset Date Comments Med Refill 03/20/2024 Encounter Details Date Type Department Care Team (Late st Contact Info) Description 03/20/2024 Telephone [facility] [address] [place] [address] Name, MD Shashi [address] [place] [address] Med Refill Social History Tobacco Use Types Packs/Day Years [...] the past 12 months, has t he [employer], [employer], oil or water [employer] threatened to shut off services in your [...] encounter Miscellaneous Notes * Telephone Encounter - Hannah Cevallos RN - 03/20/2024 11:43 AM EDT Per Erasto, Clonazepam last picked up 02/26/24. RX refill not due until 03/25/24. Will forward to PCP on 03/24/24. * Telephone Encounter - Janett Rosales - 03/20/2024 11:10 AM EDT TC from pt requesting medication refill. Medications needing refill : clonazePAM (KlonoPIN) 1 MG tablet [facility] [place], [place] - [address] [place] [address] documented in this encounter Plan of Treatment Upcoming Encounters Date Type Department Care Team (Late st Contact Info) Description 10/08/2024 2:00 PM EST Office Visit [facility] [address] [place] [address] Name, MD Shashi [address] [place] [address] 10/17/2024 2:00 PM EST Telemedicine [facility] [address] [place] [address] Hannah Cevallos, RN documented as of this encounter Goals Goal Patient Goal Type Associated Problems Recent Progress Patient-Stated? Author Blood Pressure < 140/90 Blood Pressure 141/89( 024 3:05 PM EDT) No PuiaJamilah, PharmD Record your blood pressure once per day Blood Pressure No Jamilah Arreola, PharmD documented as of this encounter Visit Diagnoses Not on filedocumented in this encounter Additional Health Concerns Assessment Noted Time PHQ-9 Depression Total Score: 9 11/09/19 24 11:20 AM EDT documented as of this encounter Care Teams Shank Boner Relationship Specialty Start Date End Date Name, MD Shashi [address] [place] [address] PCP - General Family Medicine 06/27/17 Jamilah Arreola, PharmD [address] [place] [address] Pharmacist Internal Medicine 08/02/23 04/30/24 Moriah Goldstein Contract DesignerInsole Coverer 01/10/24 documented as of this encounter
--- OUTSIDE RECORDS SUMMARY | 2024-09-15 15:27 | XMS_ITS | Encounter Summary ---
Author Organization [facility] Address [address] [place] [address] 7t [place] [address] Care Team Providers Care Breaker Machine Operator Name Role Phone Name, Shashi JONES Primary Care Provider [phone] Reason for Visit * Reason Onset Date Comments Prior Authorization 05/13/2024 Encounter Details Date Type Department Care Team ([facility] st Contact Info) Description 05/13/2024 Telephone [facility] 230 [place], [place] [phone] Name, MD Shashi 230 [place] [address] Prior Authorization Social History Tobacco Use Types Packs/Day Years [...] encounter Miscellaneous Notes * Telephone Encounter - Martha Paredes - 06/03/2024 2:50 PM EDT Tc from [facility], requesting status on PA. Ar Manager advise of RN's message. Pharmacy attempted to process script but it is still requesting a PA. * Telephone Encounter - Ruben Lovelace RN - 05/16/2024 12:14 PM EDT Patient clonazepam is coming back requiring a prior auth. Pharmacy states this is because patient is filling tramadol as well. [facility] last filled tramadol on 04/26/24 for 14 day supply (56 tabs) from [facility] at [address] [place] PA until about 05/26/24 1 month after patients fill of the tramadol. If we do a PA we have to indicate why the patient is on the tramadol and it would need to be documented in a note butwe were not aware she got this. If patient waits until middle of May we can have pharmacy re run the Rx and it should be all set for patient to fill. TC placed to patient who was informed of above and is OK waiting a couple weeks fo Rx. Message sent to provider to ensure is ok with plan. * Telephone Encounter - Joce Hopson - 05/13/2024 10:00 AM EDT Tc from [facility] calling to inform clonazePAM (KlonoPIN) 1 MG tablet needs a PA. If any questions you can contact [facility] at [phone]. documented in this encounter Plan of Treatment Upcoming Encounters Date Type Department Care Team (Late st Contact Info) Description 10/08/2024 2:00 PM EST Office Visit [address] [address] Name, MD Shashi [address] [place] [address] 10/17/2024 2:00 PM EST Telemedicine [address] [address] Hannah Cevallos, NATALIE documented as of this [...] documented as of this encounter Care Teams Breaker Machine Operator Relationship Specialty Start Date End Date Name, MD Shashi [address] [place] [address] PCP - General Family Medicine 06/27/17 Moriah Goldstein Forensic Medical ExaminerDirector Of Labor And Delivery 01/10/24 documented as of this encounter
--- OUTSIDE RECORDS SUMMARY | 2024-09-15 15:27 | XMS_ITS | Encounter Summary ---
Author Organization [employer] Address [address] [facility] 7t [place] [address] Care Team Providers Care Automotive Parts Counter Assistant Name Role Phone Name, Shashi JONES Primary Care Provider [phone] Reason for Visit * Reason Comments Med Refill Encounter Details Date Type Department Care Team ([facility] Contact Info) Description 09/04/2024 Refill [facility] [address] [place], [place] [phone] Name, MD Shashi 230 [place] [address] Mixed anxiety and depressive disorder; Other chronic [...] Description 10/08/2024 2:00 PM EST Office Visit [address] [address] Name, MD Shashi [address] [place] [address] 10/17/2024 2:00 PM EST Telemedicine [address] [address] Hannah Cevallos, NATALIE documented as of this [...] documented as of this encounter Care Teams Automotive Parts Counter Assistant Relationship Specialty Start Date End Date Name, MD Shashi [address] [place] [address] PCP - General Family Medicine 06/27/17 Moriah Goldstein Medical TranscriberGame Technician 01/10/24 documented as of this encounter
--- OUTSIDE RECORDS SUMMARY | 2024-09-15 15:27 | XMS_ITS | Encounter Summary ---
Author Organization [employer] Address 75 [facility] 7t [place] [address] Care Team Providers Care Surgery Tech Name Role Phone Name, Shashi JONES Primary Care Provider [phone] Jamilah Arreola PharmD Unavailable [phone] Reason for Visit * Reason Comments Med Refill Encounter Details Date Type Department Care Team ([facility] st Contact Info) Description 01/08/2024 Refill [facility] [address] [place], [place] [phone] Name, MD Shashi [address] [place] [address] Mixed anxiety and depressive disorder; Other chronic [...] Description 10/08/2024 2:00 PM EST Office Visit [facility] [address] [place] [address] NameShashi MD [address] [place] [address] 10/17/2024 2:00 PM EST Telemedicine [address] [address] Hannah Cevallos, NATALIE documented as of this [...] documented as of this encounter Care Teams Surgery Tech Relationship Specialty Start Date End Date Shashi Salmon MD [address] [place] [address] PCP - General Family Medicine 06/27/17 Puia, Jamilah, PharmD [address] [place] [address] Pharmacist Internal Medicine 08/02/23 04/30/24 Moriah Goldstein Regulatory Product ManagerLevelman 01/10/24 documented as of this encounter
--- OUTSIDE RECORDS SUMMARY | 2024-09-15 15:27 | XMS_ITS | Encounter Summary ---
Author Organization [employer] Address [address] [facility] 7t [place] [address] Care Team Providers Care Mushroom Growth Media Mixer Name Role Phone Name, Shashi JONES Primary Care Provider [phone] Reason for Visit * Reason Comments Med Refill Encounter Details Date Type Department Care Team ([facility] Contact Info) Description 08/08/2024 Refill [facility] 230 [place], [place] [phone] Name, MD Shashi [address] [place] [address] Other chronic pain; Mixed anxiety and depressive [...] Description 10/08/2024 2:00 PM EST Office Visit [address] [address] Shashi Salmon MD [address] [place] [address] 10/17/2024 2:00 PM EST Telemedicine [address] [address] Hannah Cevallos RN documented as of this [...] documented as of this encounter Care Teams Mushroom Growth Media Mixer Relationship Specialty Start Date End Date Shashi Salmon MD [address] [place] [address], [place] [address] PCP - General Family Medicine 06/27/17 Moriah Goldstein Project DirectorNutrition Therapist 01/10/24 documented as of this encounter
--- OUTSIDE RECORDS SUMMARY | 2024-09-15 15:27 | XMS_ITS | Encounter Summary ---
Author Organization [facility] Address [address] [place] [address] 7t [place] [address] Care Team Providers Care Floor Steward/Stewardess Name Role Phone Name, Shashi JONES Primary Care Provider [phone] Jamilah Arreola PharmD Unavailable [phone] Reason for Visit * Reason Comments Med Refill Encounter Details Date Type Department Care Team (Late st Contact Info) Description 03/25/2024 Refill [facility] [address] [place] [address] Name, MD Shashi [address] [place] [address] Chronic anxiety; Other chronic pain Social History Tobacco Use [...] Description 10/08/2024 2:00 PM EST Office Visit [address] [address] NameShashi MD [address] [place] [address] 10/17/2024 2:00 PM EST Telemedicine [address] [address] Hannah Cevallos, RN documented as of this encounter Goals Goal Patient Goal Type Associated Problems Recent Progress Patient-Stated? Author Blood Pressure < 140/90 Blood Pressure 141/89( 024 3:05 PM EDT) No Puia, Jamilah, PharmD Record your blood pressure once per day Blood Pressure No Puia, Jamilah, PharmD documented as of this encounter Visit Diagnoses Diagnosis Chronic anxiety Anxiety state, unspecified Other chronic pain documented in this encounter Additional Health Concerns Assessment Noted Time PHQ-9 Depression Total Score: 9 11/09/19 24 11:20 AM EDT documented as of this encounter Care Teams Floor Steward/Stewardess Relationship Specialty Start Date End Date NameShashi MD [address] [place] [address] PCP - General Family Medicine 06/27/17 Jamilah Arreola PharmD [address] [place] [address] Pharmacist Internal Medicine 08/02/23 04/30/24 Moriah Goldstein Loader TechnicianYouth Development Specialist 01/10/24 documented as of this encounter
--- OUTSIDE RECORDS SUMMARY | 2024-09-15 15:27 | XMS_ITS | Encounter Summary ---
Author Organization [facility] Address [address] [facility] 7t [place] [address] Care Team Providers Care Political Theory Professor Name Role Phone Name, Shashi JONES Primary Care Provider [phone] Jamilah Arreola PharmD Unavailable [phone] Reason for Visit * Reason Onset Date Comments Durable Medical Equipment 01/24/2024 Encounter Details Date Type Department Care Team (Late st Contact Info) Description 01/24/2024 Telephone [facility] [address] [place] [address] Name, MD Shashi [address] [place] [address] Durable Medical Equipment Social History Tobacco Use Types Packs/Day Years [...] encounter Miscellaneous Notes * Telephone Encounter - Joce Hopson - 01/24/2024 9:40 AM EDT Tc from pt requesting a hospital bed due to not being able to go up stairs. Pt is getting eye surgery done on 01/28 and stated she will not have the ability to go up the stairs living on the second floor. Pt is requesting a hospital bed to keep downstairs so pt does not have to go up the stairs. If any questions please contact pt at [phone]. Puerto Rican Speaker. documented in this encounter Plan of Treatment Upcoming Encounters Date Type Department Care Team (Late st Contact Info) Description 10/08/2024 2:00 PM EST Office Visit [facility] [address] [place] [address] Name, MD Shashi [address] [place] [address] 10/17/2024 2:00 PM EST Telemedicine [address] [address] Hannah Cevallos, NATALIE documented as of this [...] documented as of this encounter Care Teams Political Theory Professor Relationship Specialty Start Date End Date Name, MD Shashi [address] [place] [address] PCP - General Family Medicine 06/27/17 Jamilah Arreola, PharmD [address] [place] [address] Pharmacist Internal Medicine 08/02/23 04/30/24 Moriah Goldstein Prison GuardAir Dispatcher 01/10/24 documented as of this encounter
--- OUTSIDE RECORDS SUMMARY | 2024-09-15 15:27 | XMS_ITS | Encounter Summary ---
Author Organization [employer] [facility] Address [address] [place] [address] 7t [place] [address] Care Team Providers Care Yield Improvement Engineer Name Role Phone Name, Shashi JONES Primary Care Provider [phone] Jamilah Arreola PharmD Unavailable [phone] Reason for Visit * Reason Comments Med Refill Encounter Details Date Type Department Care Team (Late st Contact Info) Description 04/21/2024 Refill [facility] MEDICINE 230 [place] [address] Name, MD Shashi 230 [place] [address] Other chronic pain Social History Tobacco Use [...] Description 10/08/2024 2:00 PM EST Office Visit [address] [address] Name, MD Shashi [address] [place] [address] 10/17/2024 2:00 PM EST Telemedicine [address] [address] Hannah Cevallos, NATALIE documented as of this encounter Goals Goal Patient Goal Type Associated Problems Recent Progress Patient-Stated? Author Blood Pressure < 140/90 Blood Pressure 141/89( 024 3:05 PM EDT) No Puia, Jamilah, PharmD Record your blood pressure once per day Blood Pressure No Puia, Jamilah, PharmD documented as of this encounter Visit Diagnoses Diagnosis Other chronic pain documented in this encounter Additional Health Concerns Assessment Noted Time PHQ-9 Depression Total Score: 9 11/09/19 24 11:20 AM EDT documented as of this encounter Care Teams Yield Improvement Engineer Relationship Specialty Start Date End Date NameShashi MD [address] [place] [address] [phone] PCP - General Family Medicine 06/27/17 Jamilah Arreola, Juliet [address] [place] [address] [place] [phone] Pharmacist Internal Medicine 08/02/23 04/30/24 Moriah Goldstein Mission ManagerPrinting Screen Assembler 01/10/24 documented as of this encounter
--- OUTSIDE RECORDS SUMMARY | 2024-09-15 15:27 | XMS_ITS | Encounter Summary ---
Author Organization [employer] [facility] Address [address] [place] [address] 7 [place] [address] Care Team Providers Care Brassiere Cup Mold Cutter Name Role Phone Name, Shashi JONES Primary Care Provider [phone] Jamilah Arreola PharmD Unavailable [phone] Encounter Details Date Type Department Care Team (Late st Contact Info) Description 09/19/2022 Orders Only [address] [address] Hanna Schneider LPN Social History Tobacco Use Types Packs/Day Years [...] Description 10/08/2024 2:00 PM EST Office Visit [address] [address] Name, MD Shashi [address] [place] [address] 10/17/2024 2:00 PM EST Telemedicine [address] [address] Hannah Cevallos, NATALIE documented as of this encounter Visit Diagnoses Not on filedocumented in this encounter Care Teams Brassiere Cup Mold Cutter Relationship Specialty Start Date End Date Name, MD Shashi 230 [place], [place] [phone] PCP - General Family Medicine 06/27/17 Jamilah Arreola PharmD 230 [place], [place] [phone] Pharmacist Internal Medicine 08/02/23 04/30/24 Moriah Goldstein Packaging Sales ConsultantScrap Stripper Hand 01/10/24 documented as of this encounter
--- OUTSIDE RECORDS SUMMARY | 2024-09-15 15:27 | XMS_ITS | Encounter Summary ---
Author Organization [employer] [facility] Address [address] [place] [address] 7t [place] [address] Care Team Providers Care Breastfeeding Peer Counselor Name Role Phone Name, Shashi JONES Primary Care Provider [phone] Jamilah Arreola PharmD Unavailable [phone] Reason for Visit * Reason Comments Med Refill Encounter Details Date Type Department Care Team ([facility] st Contact Info) Description 02/29/2024 Refill [facility] MEDICINE 230 [place] [address] Name, MD Shashi 230 [place] [address] Mixed anxiety and depressive disorder; Other chronic [...] the past 12 months, has t he [employer], gas, oil or water [employer] threatened to shut off services in your [...] 10/08/2024 2:00 PM EST Office Visit [address] [address] NameShashi MD [address] [place] [address] 10/17/2024 2:00 PM EST Telemedicine [address] [address] Hannah Cevallos, NATALIE documented as of this [...] documented as of this encounter Care Teams Breastfeeding Peer Counselor Relationship Specialty Start Date End Date Shashi Salmon MD 230 [place], [place] [phone] PCP - General Family Medicine 06/27/17 Jamilah Arreola PharmD 230 [place], [place] [phone] Pharmacist Internal Medicine 08/02/23 04/30/24 Moriah Goldstein Management Services TechnicianStatement Services Representative 01/10/24 documented as of this encounter
--- OUTSIDE RECORDS SUMMARY | 2024-09-15 15:27 | XMS_ITS | Encounter Summary ---
Author Organization [employer] [facility] Address [address] [place] [address] [place], [place] [address] Care Team Providers Care Legal File Clerk Name Role Phone Name, Shashi JONES Primary Care Provider [phone] Jamilah Arreola PharmD Unavailable Reason for Visit * Reason Comments Med Refill Encounter Details Date Type Department Care Team (Late st Contact Info) Description 03/08/2023 Refill [facility] MED[facility]INE [address] [place] [address] Shashi Salmon MD [address] [place] [address] Mixed anxiety and depressive disorder Social History [...] Description 10/08/2024 2:00 PM EST Office Visit [facility]INE [address] [place] [address] [phone] Shashi Salmon MD [address] [place] [address] 10/17/2024 2:00 PM EST Telemedicine [facility] [address] [place] [address] [phone] Hannah Cevallos, RN documented as of this encounter Visit Diagnoses Diagnosis Mixed anxiety and depressive disorder Dysthymic disorder documented in this encounter Additional Health Concerns Assessment Noted Time PHQ-9 Depression Total Score: 6 12/12/19 23 3:34 PM EDT documented as of this encounter Care Teams Legal File Clerk Relationship Specialty Start Date End Date Name, MD Shashi 230 [place] [address] PCP - General Family Medicine 06/27/17 Jamilah Arreola PharmD 230 [place] [address] Pharmacist Internal Medicine 08/02/23 04/30/24 Moriah Goldstein Oil HeatermanCashier Checker 01/10/24 documented as of this encounter
--- OUTSIDE RECORDS SUMMARY | 2024-09-15 15:27 | XMS_ITS | Encounter Summary ---
Author Organization [employer] [facility] Address [address] [place] [address] 7 [place] [address] Care Team Providers Care Rn Clinical Documentation Specialist Name Role Phone NameShashi MD Primary Care Provider [phone] Jamilah Arreola PharmD Unavailable Reason for Visit * Reason Comments Med Refill Encounter Details Date Type Department Care Team (Late st Contact Info) Description 12/04/2022 Refill [facility] MEDICINE [address] [place] [address] Shashi Salmon MD [address] [place] [address] Mixed anxiety and depressive disorder Social History [...] suspected to have Coronavirus/COVID-19? No / Unsure 11/20/2022 9:17 AM EDT documented as of this encounter Plan of Treatment Upcoming Encounters Date Type Department Care Team (Late st Contact Info) Description 10/08/2024 2:00 PM EST Office Visit [facility] MEDICINE [address] [place] [address] [phone] Shashi Salmon MD [address] [place] [address] 10/17/2024 2:00 PM EST Telemedicine [facility] MEDICINE [address] [place] [address] [phone] Hannah Cevallos, RN documented as of this encounter Visit Diagnoses Diagnosis Mixed anxiety and depressive disorder Dysthymic disorder documented in this encounter Care Teams Rn Clinical Documentation Specialist Relationship Specialty Start Date End Date Name, MD Shashi [address] [place] [address] [phone] PCP - General Family Medicine 06/27/17 Jamilah Arreola PharmD [address] [place] [address] Pharmacist Internal Medicine 08/02/23 04/30/24 Moriah Goldstein Real Estate Agency LicenseeCut Out Marker 01/10/24 documented as of this encounter
--- OUTSIDE RECORDS SUMMARY | 2024-09-15 15:27 | XMS_ITS | Encounter Summary ---
Author Organization [employer] Address [address] [facility] 7t [place] [address] Care Team Providers Care Shredding Floor Equipment Operator Name Role Phone Name, Shashi JONES Primary Care Provider [phone] Jamilah Arreola PharmD Unavailable [phone] Reason for Visit * Reason Comments Med Refill Encounter Details Date Type Department Care Team ([facility] st Contact Info) Description 02/27/2024 Refill [facility] [address] [place], [place] [phone] Name, MD Shashi 230 [place] [address] Mixed anxiety and depressive disorder; Other chronic [...] the past 12 months, has t he [employer], gas, oil or water [employer] threatened to shut off services in your [...] Description 10/08/2024 2:00 PM EST Office Visit [address] [address] Shashi Salmon MD [address] [place] [address] 10/17/2024 2:00 PM EST Telemedicine [address] [address] Hannah Cevallos, NATALIE documented as of this [...] documented as of this encounter Care Teams Shredding Floor Equipment Operator Relationship Specialty Start Date End Date Shashi Salmon MD 230 [place], [place] [phone] PCP - General Family Medicine 06/27/17 Jamilah Arreola PharmD 230 [place], [place] [phone] Pharmacist Internal Medicine 08/02/23 04/30/24 Moriah Goldstein Aircraft MetalsmithDistillery Miller 01/10/24 documented as of this encounter
--- OUTSIDE RECORDS SUMMARY | 2024-09-15 15:27 | XMS_ITS | Encounter Summary ---
Author Organization [employer] Address [address] [facility] 7t [place] [address] Care Team Providers Care Digital Marketing Analyst Name Role Phone Name, Shashi JONES Primary Care Provider [phone] Jamilah Arreola PharmD Unavailable [phone] Reason for Visit * Reason Comments Med Refill Encounter Details Date Type Department Care Team ([facility] st Contact Info) Description 03/14/2024 Refill [facility] MED & PEDS [address] [place], [place] [phone] Name, MD Shashi 230 [place] [address] Mixed anxiety and depressive disorder; Other chronic [...] the past 12 months, has t he [employer], gas, oil or water [employer] threatened to shut off services in your [...] Description 10/08/2024 2:00 PM EST Office Visit [address] [address] Shashi Salmon MD [address] [place] [address] 10/17/2024 2:00 PM EST Telemedicine [address] [address] Hannah Cevallos, NATALIE documented as of this [...] documented as of this encounter Care Teams Digital Marketing Analyst Relationship Specialty Start Date End Date Shashi Salmon MD 230 [place], [place] [phone] PCP - General Family Medicine 06/27/17 Jamilah Arreola PharmD 230 [place], [place] [phone] Pharmacist Internal Medicine 08/02/23 04/30/24 Moriah Goldstein Program ClinicianHealthcare Facility Administrator 01/10/24 documented as of this encounter
--- OUTSIDE RECORDS SUMMARY | 2024-09-15 15:27 | XMS_ITS | Encounter Summary ---
Author Organization [employer] [facility] Address [address] [place] [address] 7 [place] [address] Care Team Providers Care Scouring Machine Operator Name Role Phone NameShashi MD Primary Care Provider [phone] Jamilah Arreola PharmD Unavailable Reason for Visit * Reason Comments Med Refill Encounter Details Date Type Department Care Team (Late Contact Info) Description 12/12/2022 Refill [facility] MEDICINE [address] [place] [address] Shashi Salmon MD [address] [place] [address] Mixed anxiety and depressive disorder Social History [...] Description 10/08/2024 2:00 PM EST Office Visit [facility] MEDICINE [address] [place] [address] [phone] Shashi Salmon MD [address] [place] [address] 10/17/2024 2:00 PM EST Telemedicine [facility] MED[facility]INE [address] [place] [address] [phone] Hannah Cevallos, RN documented as of this encounter Visit Diagnoses Diagnosis Mixed anxiety and depressive disorder Dysthymic disorder documented in this encounter Additional Health Concerns Assessment Noted Time PHQ-9 Depression Total Score: 6 12/12/19 23 3:34 PM EDT documented as of this encounter Care Teams Scouring Machine Operator Relationship Specialty Start Date End Date Name, MD Shashi [address] [place] [address] PCP - General Family Medicine 06/27/17 Jamilah Arreola PharmD [address] [place] [address] Pharmacist Internal Medicine 08/02/23 04/30/24 Moriah Goldstein Insulation BlowerLaunch Check Out 01/10/24 documented as of this encounter
--- OUTSIDE RECORDS SUMMARY | 2024-09-15 15:28 | XMS_ITS | Encounter Summary ---
Author Organization [email or web address] [facility] Address [address] [facility] 7t [place] [address] Care Team Providers Care Moisture Meter Operator Name Role Phone Name, Shashi JONES Primary Care Provider [phone] Jamilah Arreola PharmD Unavailable [phone] Reason for Visit * Reason Comments Med Refill Encounter Details Date Type Department Care Team ([facility] st Contact Info) Description 09/25/2023 Refill [facility] MEDICINE 230 [place] [address] Name, MD Shashi 230 [place] [address] Social History Tobacco Use Types Packs/Day Years Used Date Smoking Tobacco: Never Alcohol Use Standard Drinks/Week Comments Never 0 (1 standard drink = 0.6 oz pur e alcohol) Depression Answer Date Recorded Patient Health Questionnaire-9 Score 10 04/18/2023 Housing Stability Answer Date Recorded What is [...] Answer Date Recorded Patient Health Questionnaire-2 Score 3 04/18/2023 Comments Unknown Sex and Gender Information Value [...] Visit [facility] MEDICINE [address] [place] [address] Name, MD Shashi [address] [place] [address] 10/17/2024 2:00 PM EST Telemedicine [facility] MED[facility]INE [address] [place] [address] Hannah Cevallos, NATALIE documented as of this [...] Assessment Noted Time PHQ-9 Depression Total Score: 10 023 8:36 AM EDT documented as of this encounter Care Teams Moisture Meter Operator Relationship Specialty Start Date End Date NameShashi MD [address] [place] [address] PCP - General Family Medicine 06/27/17 Puia, Jamilah, PharmD [address] [place] [address] Pharmacist Internal Medicine 08/02/23 04/30/24 Moriah Goldstein Gathering Machine SetterAcid Bath Mixer 01/10/24 documented as of this encounter
--- OUTSIDE RECORDS SUMMARY | 2024-09-15 15:28 | XMS_ITS | Encounter Summary ---
Author Organization [employer] Address [address] [facility] 7t [place] [address] Care Team Providers Care Director Furniture Name Role Phone Name, Shashi JONES Primary Care Provider [phone] Jamilah Arreola PharmD Unavailable [phone] Reason for Visit * Reason Comments Med Refill Encounter Details Date Type Department Care Team ([facility] st Contact Info) Description 10/08/2023 Refill [facility]S [address] [place], [place] [phone] Name, MD Shashi 230 [place] [address] Mixed anxiety and depressive disorder Social History Tobacco Use Types Packs/Day Years Used Date Smoking Tobacco: Never Alcohol Use Standard Drinks/Week Comments Never 0 (1 standard drink = 0.6 oz pur e alcohol) Depression Answer Date Recorded Patient Health Questionnaire-9 Score 10 04/18/2023 Housing Stability Answer Date Recorded What is your housing situation today? I have mike brwester 06/01/[address] you li [...] Description 10/08/2024 2:00 PM EST Office Visit [facility] MEDICINE [address] [place] [address] Name, MD Shashi [address] [place] [address] 10/17/2024 2:00 PM EST Telemedicine [facility] MEDICINE [address] [place] [address] Hannah Cevallos, NATALIE documented as of this [...] documented as of this encounter Care Teams Director Furniture Relationship Specialty Start Date End Date Name, MD Shashi [address] [place] [address] PCP - General Family Medicine 06/27/17 Puia, Jamilah, PharmD [address] [place] [address] Pharmacist Internal Medicine 08/02/23 04/30/24 Moriah Goldstein Draw Furnace TenderCore Composer Feeder 01/10/24 documented as of this encounter
--- OUTSIDE RECORDS SUMMARY | 2024-09-15 15:28 | XMS_ITS | Encounter Summary ---
Author Organization [employer] Address [address] [facility] 7t [place] [address] Care Team Providers Care Tire Retreader Name Role Phone Name, Shashi JONES Primary Care Provider [phone] Jamilah Arreola PharmD Unavailable [phone] Reason for Visit * Reason Onset Date Comments Durable Medical Equipment 06/01/2023 Bariat ebenezer Commode Encounter Details Date Type Department Care Team ([facility] st Contact Info) Description 06/01/2023 Telephone [facility] MEDICINE 230 [place], [place] [phone] Name, MD Shashi 230 [place], [place] [phone] Durable Medical Equipment (Bariatric Commode) Social History Tobacco Use Types Packs/Day Years [...] encounter Miscellaneous Notes * Telephone Encounter - Hawa Hopson - 06/12/2023 2:08 PM EDT Frank require request for Commode be changed to a Bariatric Commode. A new RX has been generated and placed on provider desk for review and signature. * Telephone Encounter - Pérez Casillas - 06/08/2023 11:18 AM EDT Tc from pt stating L&[facility] received script for bedside commode however pt states needs heavy duty commode or bariatric commode , also stated L&C faxed forms over. Please contact pt [phone] * Telephone Encounter - Wendy Hopper - 06/01/2023 12:43 PM EDT DME CREATED WILL BE PLACED ON DESK TO SIGN. * Telephone Encounter - Wendy Hopper - 06/01/2023 12:16 PM EDT PLEASE ADVICE. * Telephone Encounter - Janett Rosales - 06/01/2023 11:34 AM EDT Tc from pt requesting DME on Bedside Commode, Portable Toilet. documented in this encounter Plan of Treatment Upcoming Encounters Date Type Department Care Team (Late st Contact Info) Description 10/08/2024 2:00 PM EST Office Visit [address] [address] Name, MD Shashi [address] [place] [address] 10/17/2024 2:00 PM EST Telemedicine [address] [phone] Hannah Cevallos, NATALIE documented as of this encounter Visit Diagnoses Not on filedocumented in this encounter Additional Health Concerns Assessment Noted Time PHQ-9 Depression Total Score: 10 023 8:36 AM EDT documented as of this encounter Care Teams Tire Retreader Relationship Specialty Start Date End Date Name, MD Shashi [address] [place] [address] PCP - General Family Medicine 06/27/17 Jamilah Arreola PharmD [address] [place] [address] Pharmacist Internal Medicine 08/02/23 04/30/24 Moriah Goldstein Interpreter TranslatorRegistered Account Administrator 01/10/24 documented as of this encounter
--- OUTSIDE RECORDS SUMMARY | 2024-09-15 15:28 | XMS_ITS | Encounter Summary ---
Author Organization [employer] [facility] Address [address] [facility] 7t [place] [address] Care Team Providers Care Plastics Engineering Teacher Name Role Phone Name, Shashi JONES Primary Care Provider [phone] Jamilah Arreola PharmD Unavailable [phone] Reason for Visit * Reason Comments Med Refill Encounter Details Date Type Department Care Team ([facility] st Contact Info) Description 10/06/2023 Refill [facility] MEDICINE 230 [place] [address] Name, MD Shashi 230 [place] [address] Mixed anxiety and depressive disorder Social History [...] Description 10/08/2024 2:00 PM EST Office Visit [address] [address] Name, MD Shashi [address] [place] [address] 10/17/2024 2:00 PM EST Telemedicine [address] [address] Hannah Cevallos, NATALIE documented as of this [...] documented as of this encounter Care Teams Plastics Engineering Teacher Relationship Specialty Start Date End Date Name, MD Shashi [address] [place] [address] [phone] PCP - General Family Medicine 06/27/17 Puia, Jamilah, PharmD [address] [place] [address] Pharmacist Internal Medicine 08/02/23 04/30/24 Moriah Goldstein Fish CheckerRag Cutting Machine Operator 01/10/24 documented as of this encounter
--- OUTSIDE RECORDS SUMMARY | 2024-09-15 15:28 | XMS_ITS | Encounter Summary ---
Author Organization [employer] Address [address] [facility] 7t [place] [address] Care Team Providers Care Accounts Payable Professional Name Role Phone Name, Shashi JONES Primary Care Provider [phone] Jamilah Arreola PharmD Unavailable [phone] Reason for Visit * Reason Comments Med Refill Encounter Details Date Type Department Care Team ([facility] st Contact Info) Description 12/06/2023 Refill [facility] MEDICINE 230 [place] [address] Name, MD Shashi 230 [place] [address] Mixed anxiety and depressive disorder Social History [...] 10/08/2024 2:00 PM EST Office Visit [address] [address] Name, MD Shashi [address] [place] [address] 10/17/2024 2:00 PM EST Telemedicine [address] [address] Hannah Cevallos, NATALIE documented as of this [...] documented as of this encounter Care Teams Accounts Payable Professional Relationship Specialty Start Date End Date Shashi Salmon MD [address] [place] [address] PCP - General Family Medicine 06/27/17 PuiaCrescencioJamilah, PharmD 230 [place] [address] Pharmacist Internal Medicine 08/02/23 04/30/24 Moriah Goldstein Collar SeparatorEngineering Mathematician 01/10/24 documented as of this encounter
--- OUTSIDE RECORDS SUMMARY | 2024-09-15 15:28 | XMS_ITS | Encounter Summary ---
Author Organization [employer] Address [address] [place] [address] 7t [place] [address] Care Team Providers Care Public Health Sanitarian Technician Name Role Phone Name, Shashi JONES Primary Care Provider [phone] Reason for Visit * Reason Onset Date Comments PT-1 07/01/2024 Encounter Details Date Type Department Care Team ([facility] st Contact Info) Description 07/01/2024 Telephone [facility] MEDICINE 230 [place], [place] [phone] Name, MD Shashi 230 [place] [address] PT-1 Social History Tobacco Use Types Packs/Day Years [...] * Telephone Encounter - Joce Hopson - 07/01/2024 10:14 AM EST Tc from pt called in regards to a PT-1 but did not have information at hand. Pt stated she jonathan callback with information. documented in this encounter Plan of Treatment Upcoming Encounters Date Type Department Care Team (Late st Contact Info) Description 10/08/2024 2:00 PM EST Office Visit [facility] MEDICINE [address] [place] [address] Name, MD Shashi [address] [place] [address] 10/17/2024 2:00 PM EST Telemedicine [facility] MEDICINE [address] [place] [address] Hannah Cevallos RN documented as of this [...] documented as of this encounter Care Teams Public Health Sanitarian Technician Relationship Specialty Start Date End Date Name, MD Shashi 230 [place] [address] PCP - General Family Medicine 06/27/17 Moriah Goldstein Braided Rug MakerBlood Bank Manager 01/10/24 documented as of this encounter
--- OUTSIDE RECORDS SUMMARY | 2024-09-15 15:28 | XMS_ITS | Encounter Summary ---
Author Organization [employer] [facility] Address [address] [facility] 7t [place] [address] Care Team Providers Care Business Lawyer Name Role Phone Name, Shashi JONES Primary Care Provider [phone] Jamilah Arreola PharmD Unavailable [phone] Reason for Visit * Reason Comments Med Refill Encounter Details Date Type Department Care Team (Late st Contact Info) Description 12/11/2023 Refill [facility] 230 [place] [address] Name, MD Shashi 230 [place] [address] Essential hypertension; Other chronic pain Social History Tobacco Use [...] Description 10/08/2024 2:00 PM EST Office Visit [address] [address] Name, MD Shashi [address] [place] [address] 10/17/2024 2:00 PM EST Telemedicine [address] [address] Hannah Cevallos, NATALIE documented as of this encounter Goals Goal Patient Goal Type Associated Problems Recent Progress Patient-Stated? Author Blood Pressure < 140/90 Blood Pressure 141/89( 024 3:05 PM EDT) No PuiaCrescencioJamilah, PharmD Record your blood pressure once per day Blood Pressure No Puia, Jamilah, PharmD documented as of this encounter Visit Diagnoses Diagnosis Essential hypertension Unspecified essential hypertension Other chronic pain documented in this encounter Additional Health Concerns Assessment Noted Time PHQ-9 Depression Total Score: 9 11/09/19 24 11:20 AM EDT documented as of this encounter Care Teams Business Lawyer Relationship Specialty Start Date End Date Shashi Salmon MD [address] [place] [address] PCP - General Family Medicine 06/27/17 RadhaiaCrescencioJamilah, PharmD 230 [place] [address] Pharmacist Internal Medicine 08/02/23 04/30/24 Moriah Goldstein Warehouse Stock ClerkSuperintendent Operations Division 01/10/24 documented as of this encounter
--- OUTSIDE RECORDS SUMMARY | 2024-09-15 15:28 | XMS_ITS | Encounter Summary ---
Author Organization [employer] [facility] Address [address] [facility] 7t [place] [address] Care Team Providers Care Cloth Winding Supervisor Name Role Phone Name, Shashi JONES Primary Care Provider [phone] Jamilah Arreola PharmD Unavailable [phone] Reason for Visit * Reason Comments Med Refill Encounter Details Date Type Department Care Team ([facility] st Contact Info) Description 11/01/2023 Refill [facility] 230 [place] [address] Name, MD Shashi 230 [place] [address] Mixed anxiety and depressive disorder Social History [...] Description 10/08/2024 2:00 PM EST Office Visit [address] [address] Name, MD Shashi [address] [place] [address] 10/17/2024 2:00 PM EST Telemedicine [address] [address] Hannah Cevallos, NATALIE documented as of this [...] documented as of this encounter Care Teams Cloth Winding Supervisor Relationship Specialty Start Date End Date Name, MD Shashi [address] [place] [phone] PCP - General Family Medicine 06/27/17 Puia, Jamilah, PharmD [address] [place] [address] Pharmacist Internal Medicine 08/02/23 04/30/24 Moriah Goldstein Program Coordinator Executive EducationSupervisor Metal Placing 01/10/24 documented as of this encounter
--- OUTSIDE RECORDS SUMMARY | 2024-09-15 15:28 | XMS_ITS | Encounter Summary ---
Author Organization [employer] Address [address] [facility] 7t [place] [address] Care Team Providers Care Prop Maker Name Role Phone Name, Shashi JONES Primary Care Provider [phone] Jamilah Arreola PharmD Unavailable [phone] Reason for Visit * Reason Comments Med Refill Encounter Details Date Type Department Care Team ([facility] st Contact Info) Description 10/22/2023 Refill [facility] [address] [place], [place] [phone] Name, MD Shashi 230 [place] [address] Social History Tobacco Use Types Packs/Day Years [...] Description 10/08/2024 2:00 PM EST Office Visit [facility] [address] [place] [address] Name, MD Shashi [address] [place] [address] 10/17/2024 2:00 PM EST Telemedicine [address] [address] Hannah Cevallos, NATALIE documented as of this [...] documented as of this encounter Care Teams Prop Maker Relationship Specialty Start Date End Date Name, MD Shashi [address] [place] [address] PCP - General Family Medicine 06/27/17 Puia, Jamilah, PharmD [address] [place] [address] Pharmacist Internal Medicine 08/02/23 04/30/24 Moriah Goldstein Vice President Investor RelationsMarble Worker 01/10/24 documented as of this encounter
--- OUTSIDE RECORDS SUMMARY | 2024-09-15 15:28 | XMS_ITS | Encounter Summary ---
Author Organization [employer] [facility] Address [address] [facility] 7t [place] [address] Care Team Providers Care Enrollment Manager Name Role Phone Name, Shashi JONES Primary Care Provider [phone] Jamilah Arreola PharmD Unavailable [phone] Reason for Visit * Reason Comments Med Refill Encounter Details Date Type Department Care Team ([facility] st Contact Info) Description 09/17/2023 Refill [facility] 230 [place] [address] Name, MD Shashi 230 [place] [address] Mixed anxiety and depressive disorder Social History [...] Description 10/08/2024 2:00 PM EST Office Visit [address] [address] Name, MD Shashi [address] [place] [address] 10/17/2024 2:00 PM EST Telemedicine [address] [address] Hannah Cevallos, NATALIE documented as of this [...] documented as of this encounter Care Teams Enrollment Manager Relationship Specialty Start Date End Date Name, MD Shashi [address] [place] [address] [phone] PCP - General Family Medicine 06/27/17 Puia, Jamilah, PharmD [address] [place] [address] Pharmacist Internal Medicine 08/02/23 04/30/24 Moraih Goldstein Ecological Technical OfficerMeasurement Operator 01/10/24 documented as of this encounter
--- OUTSIDE RECORDS SUMMARY | 2024-09-15 15:28 | XMS_ITS | Encounter Summary ---
Author Organization [employer] [facility] Address [address] [facility] 7t [place] [address] Care Team Providers Care Bread Dumper Name Role Phone Name, Shashi JONES Primary Care Provider [phone] Jamilah Arreola PharmD Unavailable [phone] Reason for Visit * Reason Comments Med Refill Encounter Details Date Type Department Care Team ([facility] st Contact Info) Description 08/29/2023 Refill [facility] 230 [place] [address] Name, MD Shashi 230 [place] [address] Mixed anxiety and depressive disorder Social History [...] Description 10/08/2024 2:00 PM EST Office Visit [address] [address] Name, MD Shashi [address] [place] [address] 10/17/2024 2:00 PM EST Telemedicine [address] [address] Hannah Cevallos, NATALIE documented as of this [...] documented as of this encounter Care Teams Bread Dumper Relationship Specialty Start Date End Date Name, MD Shashi [address] [place] [address] [phone] PCP - General Family Medicine 06/27/17 Puia, Jamilah, PharmD [address] [place] [address] Pharmacist Internal Medicine 08/02/23 04/30/24 Moriah Goldstein Code OfficialStaff Design Engineer 01/10/24 documented as of this encounter
--- OUTSIDE RECORDS SUMMARY | 2024-09-15 15:28 | XMS_ITS | Encounter Summary ---
Author Organization [facility] Address [address] [facility] 7t [place] [address] Care Team Providers Care Medical Tech Name Role Phone Name, Shashi JONES Primary Care Provider Jamilah Arreola PharmD Unavailable [phone] Reason for Visit * Reason Comments Med Refill Encounter Details Date Type Department Care Team ([facility] st Contact Info) Description 09/12/2023 Refill [facility] 230 [place] [address] Name, MD Shashi 230 [place] [address] Mixed anxiety and depressive disorder Social History [...] 10/08/2024 2:00 PM EST Office Visit [address] [address] Name, MD Shashi [address] [place] [address] 10/17/2024 2:00 PM EST Telemedicine [address] [address] Hannah Cevallos, NATALIE documented as of this [...] documented as of this encounter Care Teams Medical Tech Relationship Specialty Start Date End Date Name, MD Shashi [address] [place] [address] [phone] PCP - General Family Medicine 06/27/17 Puia, Jamilah, PharmD [address] [place] [address] Pharmacist Internal Medicine 08/02/23 04/30/24 Moriah Goldstein Junior Business AnalystShot Polisher And Inspector 01/10/24 documented as of this encounter
--- OUTSIDE RECORDS SUMMARY | 2024-09-15 15:28 | XMS_ITS | Encounter Summary ---
Author Organization [employer] [facility] Address [address] [facility] 7t [place] [address] Care Team Providers Care High School Band Director Name Role Phone Name, Shashi JONES Primary Care Provider [phone] Jamilah Arreola PharmD Unavailable [phone] Reason for Visit * Reason Comments Med Refill Encounter Details Date Type Department Care Team ([facility] st Contact Info) Description 09/04/2023 Refill [facility]INE 230 [place] [address] Name, MD Shashi 230 [place] [address] Social History Tobacco Use Types Packs/Day Years [...] Description 10/08/2024 2:00 PM EST Office Visit [facility] [address] [place] [address] Name, MD Shashi [address] [place] [address] 10/17/2024 2:00 PM EST Telemedicine [facility] [address] [place] [address] Hannah Cevallos, NATALIE documented as of this [...] documented as of this encounter Care Teams High School Band Director Relationship Specialty Start Date End Date NameShashi MD [address] [place] [address] PCP - General Family Medicine 06/27/17 Puia, Jamilah, PharmD [address] [place] [address] Pharmacist Internal Medicine 08/02/23 04/30/24 Moriah Goldstein Motor AdjusterOcean Fishing Guide 01/10/24 documented as of this encounter
--- OUTSIDE RECORDS SUMMARY | 2024-09-15 15:28 | XMS_ITS | Encounter Summary ---
Author Organization [facility] [facility] Address [address] [place] [address] 7t [place] [address] Care Team Providers Care Strategic Sourcing Specialist Name Role Phone Name, Shashi JONES Primary Care Provider [phone] Jamilah Arreola PharmD Unavailable Encounter Details Date Type Department Care Team (Late st Contact Info) Description 05/16/2023 Telephone [facility] 230 [place] [address] Name, MD Shashi 230 [place] [address] Social History Tobacco Use Types Packs/Day Years Used Date Smoking Tobacco: Never Alcohol Use Standard Drinks/Week Comments Never 0 (1 standard drink = 0.6 oz pur e alcohol) Depression Answer Date Recorded Patient Health Questionnaire-9 Score 10 04/18/2023 Depression Answer Date Recorded Patient Health Questionnaire-2 Score 3 04/18/2023 Comments Unknown Sex and Gender Information Value Date Recorded Sex Assigned at Female 06/12/2022 10:15 AM EDT Legal Sex Female 10:15 AM EDT Gender Identity Female 06/12/2022 10:15 AM EDT Sexual Orientation Straight 06/12/2022 10 :15 AM EDT documented as of this encounter Miscellaneous Notes * Telephone Encounter - Yamileth Rhodes LPN - 05/16/2023 3:48 PM EDT Medication was sent to [facility] on 04/13/23. * Telephone Encounter - Mayra Ray - 05/16/2023 3:45 PM EDT Tc from [facility] requesting for losartan (Cozaar) 100 MG tablet to be sent to [facility], [place] - [address] [place] [address]. documented in this encounter Plan of Treatment Upcoming Encounters Date Type Department Care Team (Late st Contact Info) Description 10/08/2024 2:00 PM EST Office Visit [address] [address] Name, MD Shashi [address] [place] [address] 10/17/2024 2:00 PM EST Telemedicine [address] [address] Hannah Cevallos, NATALIE documented as of this encounter Visit Diagnoses Not on filedocumented in this encounter Additional Health Concerns Assessment Noted Time PHQ-9 Depression Total Score: 10 023 8:36 AM EDT documented as of this encounter Care Teams Strategic Sourcing Specialist Relationship Specialty Start Date End Date Name, MD Shashi [address] [place] [address] PCP - General Family Medicine 06/27/17 Jamilah Arreola PharmD [address] [place] [address] Pharmacist Internal Medicine 08/02/23 04/30/24 Moriah Goldstein Medication Administration ProfessionalLibrary Director 01/10/24 documented as of this encounter
--- OUTSIDE RECORDS SUMMARY | 2024-09-15 15:28 | XMS_ITS | Encounter Summary ---
Author Organization [employer] Address [address] [facility] 7t [place] [address] Care Team Providers Care Surveillance Dual Rate Officer Name Role Phone Name, Shashi JONES Primary Care Provider [phone] Jamilah Arreola PharmD Unavailable [phone] Reason for Visit * Reason Comments Med Refill Encounter Details Date Type Department Care Team ([facility] st Contact Info) Description 10/24/2023 Refill [facility] [address] [place], [place] [phone] Name, MD Shashi 230 [place] [address] Social History Tobacco Use Types Packs/Day Years [...] 10/08/2024 2:00 PM EST Office Visit [facility] MED[facility] [address] [place] [address] Name, MD Shashi [address] [place] [address] 10/17/2024 2:00 PM EST Telemedicine [address] [address] Hannah Cevallos, NATALIE documented as of this [...] documented as of this encounter Care Teams Surveillance Dual Rate Officer Relationship Specialty Start Date End Date Name, MD Shashi [address] [place] [address] PCP - General Family Medicine 06/27/17 Puia, Jamilah, PharmD [address] [place] [address] Pharmacist Internal Medicine 08/02/23 04/30/24 Moriah Goldstein Cementer Machine ApplicatorBrokerage Manager 01/10/24 documented as of this encounter
--- OUTSIDE RECORDS SUMMARY | 2024-09-15 15:28 | XMS_ITS | Encounter Summary ---
Author Organization [employer] Address [address] [place] [address] 7t [place] [address] Care Team Providers Care Deck Cadet Name Role Phone Name, Shashi JONES Primary Care Provider [phone] Reason for Visit * Reason Onset Date Comments PT-1 06/19/2024 Encounter Details Date Type Department Care Team ([facility] st Contact Info) Description 06/19/2024 Telephone [facility] 230 [place], [place] [phone] Name, MD Shashi 230 [place] [address] PT-1 Social History Tobacco Use Types Packs/Day [...] encounter Miscellaneous Notes * Telephone Encounter - Pérez Casillas - 06/19/2024 8:46 AM EST Patient calling requesting PT1 Home Address verified: Y/N: Yes Provider name or facility name: [facility] Dr. Reyez Facility Address: [address] [place] [address] Escort needed: Y/N: Yes ( coper hand daughter/WEBSITE DESIGNER) Do you have a wheelchair: Y/N: Yes If yes- Manual or electric: Manual Visits: 2x months Date: 06/25/24 Time: 7:40am documented in this encounter Plan of Treatment Upcoming Encounters Date Type Department Care Team (Late st Contact Info) Description 10/08/2024 2:00 PM EST Office Visit [facility] [address] [place] [address] Name, MD Shashi [address] [place] [address] 10/17/2024 2:00 PM EST Telemedicine [facility] [address] [place] [address] Hannah Cevallos RN documented as of this encounter Goals Goal Patient Goal Type Associated Problems Recent Progress Patient-Stated? Author Blood Pressure < 140/90 Blood Pressure 141/89( 024 3:05 PM EDT) No Jamilah Arreola, PharmD Record your blood pressure once per day Blood Pressure No Jamilah Arreola, PharmD documented as of this encounter Visit Diagnoses Not on filedocumented in this encounter Additional Health Concerns Assessment Noted Time PHQ-9 Depression Total Score: 9 11/09/19 24 11:20 AM EDT documented as of this encounter Care Teams Deck Cadet Relationship Specialty Start Date End Date Name, MD Shashi 230 [place] [address] PCP - General Family Medicine 06/27/17 Moriah Goldstein Sand MillerMechanical Maintenance Foreman 01/10/24 documented as of this encounter
--- OUTSIDE RECORDS SUMMARY | 2024-09-15 15:28 | XMS_ITS | Encounter Summary ---
Author Organization [employer] [facility] Address [address] [place] [address] [place] [address] Care Team Providers Care Director Plans Name Role Phone Name, Shashi JONES Primary Care Provider Jamilah Arreola PharmD Unavailable Reason for Visit * Reason Comments Med Refill Encounter Details Date Type Department Care Team (Late st Contact Info) Description 04/02/2023 Refill [facility] [address] [place] [address] Sienna Hernandez, PATRICK 505 [place] [address] Mixed anxiety and depressive disorder Social History [...] 10/08/2024 2:00 PM EST Office Visit [facility] [address] [place] [address] [phone] Name, MD Shashi [address] [place] [address] 10/17/2024 2:00 PM EST Telemedicine [facility] [address] [place] [address] Hannah Cevallos, RN documented as of this encounter Visit Diagnoses Diagnosis Mixed anxiety and depressive disorder Dysthymic disorder documented in this encounter Additional Health Concerns Assessment Noted Time PHQ-9 Depression Total Score: 6 12/12/19 23 3:34 PM EDT documented as of this encounter Care Teams Director Plans Relationship Specialty Start Date End Date Name, MD Shashi 230 [place] [address] PCP - General Family Medicine 06/27/17 Jamilah Arreola PharmD 230 [place] [address] Pharmacist Internal Medicine 08/02/23 04/30/24 Moriah Goldstein Sustainability Purchasing AgentIt Lead 01/10/24 documented as of this encounter
--- OUTSIDE RECORDS SUMMARY | 2024-09-15 15:28 | XMS_ITS | Encounter Summary ---
Author Organization [employer] Address [address] [facility] 7t [place] [address] Care Team Providers Care Cashier And Salesperson Name Role Phone Name, Shashi JONES Primary Care Provider [phone] Jamilah Arreola PharmD Unavailable [phone] Reason for Visit * Reason Comments Med Refill Encounter Details Date Type Department Care Team ([facility] st Contact Info) Description 10/01/2023 Refill [facility] [address] [place], [place] [phone] Name, MD Shashi 230 [place] [address] Social History Tobacco Use Types Packs/Day Years [...] Description 10/08/2024 2:00 PM EST Office Visit [facility] [address] [place] [address] Name, MD Shashi [address] [place] [address] 10/17/2024 2:00 PM EST Telemedicine [address] [address] Hannah Cevallos, NATALIE documented as of this [...] documented as of this encounter Care Teams Cashier And Salesperson Relationship Specialty Start Date End Date Name, MD Shashi [address] [place] [address] PCP - General Family Medicine 06/27/17 Puia, Jamilah, PharmD [address] [place] [address] Pharmacist Internal Medicine 08/02/23 04/30/24 Moriah Goldstein Market Analysis DirectorTransmission Systems Operator 01/10/24 documented as of this encounter
--- OUTSIDE RECORDS SUMMARY | 2024-09-15 15:28 | XMS_ITS | Encounter Summary ---
Author Organization [employer] [facility] Address [address] [facility] 7t [place] [address] Care Team Providers Care Ground Wirer Name Role Phone Name, Shashi JONES Primary Care Provider [phone] Jamilah Arreola PharmD Unavailable [phone] Reason for Visit * Reason Comments Med Refill Encounter Details Date Type Department Care Team ([facility] st Contact Info) Description 09/24/2023 Refill [facility] 230 [place] [address] Name, MD Shashi 230 [place] [address] Social History Tobacco Use Types Packs/Day Years [...] Description 10/08/2024 2:00 PM EST Office Visit [facility] [address] [place] [address] Name, MD Shashi [address] [place] [address] 10/17/2024 2:00 PM EST Telemedicine [facility] [address] [place] [address] Hannah Cevallos, NATALIE documented as of this [...] documented as of this encounter Care Teams Ground Wirer Relationship Specialty Start Date End Date NameShashi MD [address] [place] [address] PCP - General Family Medicine 06/27/17 Puia, Jamilah, PharmD [address] [place] [address] Pharmacist Internal Medicine 08/02/23 04/30/24 Moriah Goldstein Cafeteria OperatorDriver Helper 01/10/24 documented as of this encounter
--- OUTSIDE RECORDS SUMMARY | 2024-09-15 15:28 | XMS_ITS | Encounter Summary ---
Author Organization [employer] [facility] Address [address] [facility] 7t [place] [address] Care Team Providers Care Patented Hogshead Assembler Name Role Phone Name, Shashi JONES Primary Care Provider [phone] Jamilah Arreola PharmD Unavailable [phone] Reason for Visit * Reason Comments Med Refill Encounter Details Date Type Department Care Team (Late st Contact Info) Description 12/11/2023 Refill [facility] 230 [place] [address] Name, MD Shashi 230 [place] [address] Essential hypertension; Other chronic pain Social History [...] Description 10/08/2024 2:00 PM EST Office Visit [address] [address] Name, MD Shashi [address] [place] [address] 10/17/2024 2:00 PM EST Telemedicine [address] [address] Hannah Cevallos, NATALIE documented as of this [...] documented as of this encounter Care Teams Patented Hogshead Assembler Relationship Specialty Start Date End Date Shashi Salmon MD [address] [place] [address] PCP - General Family Medicine 06/27/17 RadhaiaCrescencioJamilah, PharmD 230 [place] [address] Pharmacist Internal Medicine 08/02/23 04/30/24 Moriah Goldstein [place] [place] Police SergeantCooking Teacher 01/10/24 documented as of this encounter
--- OUTSIDE RECORDS SUMMARY | 2024-09-15 15:28 | XMS_ITS | Encounter Summary ---
Author Organization [employer] [facility] Address [address] [facility] 7t [place] [address] Care Team Providers Care Forklift Operator Name Role Phone Name, Shashi JONES Primary Care Provider [phone] Jamilah Arreola PharmD Unavailable [phone] Reason for Visit * Reason Comments Med Refill Encounter Details Date Type Department Care Team ([facility] st Contact Info) Description 11/16/2023 Refill [facility] [address] [place] [address] Name, MD Shashi [address] [place] [address] Chronic anxiety Social History Tobacco Use Types [...] 10/08/2024 2:00 PM EST Office Visit [address] [address] Name, MD Shashi [address] [place] [address] 10/17/2024 2:00 PM EST Telemedicine [address] [address] Hannah Cevallos RN documented as of this encounter Goals Goal Patient Goal Type Associated Problems Recent Progress Patient-Stated? Author Blood Pressure < 140/90 Blood Pressure 141/89( 024 3:05 PM EDT) No Puia, Jamilah, PharmD Record your blood pressure once per day Blood Pressure No Puia, Jamilah, PharmD documented as of this encounter Visit Diagnoses Diagnosis Chronic anxiety Anxiety state, unspecified documented in this encounter Additional Health Concerns Assessment Noted Time PHQ-9 Depression Total Score: 9 11/09/19 24 11:20 AM EDT documented as of this encounter Care Teams Forklift Operator Relationship Specialty Start Date End Date Shashi Salmon MD [address] [place] [address] PCP - General Family Medicine 06/27/17 Puia, Jamilah, PharmD [address] [place] [address] Pharmacist Internal Medicine 08/02/23 04/30/24 Moriah Goldstein WireworkerMarble Machine Operator 01/10/24 documented as of this encounter
--- OUTSIDE RECORDS SUMMARY | 2024-09-15 15:28 | XMS_ITS | Encounter Summary ---
Author Organization [employer] Address [address] [facility] 7t [place] [address] Care Team Providers Care Seasonal Tax Preparer Name Role Phone Name, Shashi JONES Primary Care Provider [phone] Jamilah Arreola PharmD Unavailable [phone] Reason for Visit * Reason Comments Med Refill Encounter Details Date Type Department Care Team ([facility] st Contact Info) Description 11/05/2023 Refill [facility] [address] [place], [place] [id number] Name, MD Shashi [address] [place] [address] Mixed anxiety and depressive disorder Social History [...] your housing situation today? I have mike berwster 06/01/[address] you li [...] 2:00 PM EST Office Visit [facility] MED[facility] [address] [place] [address] Name, MD Shashi [address] [place] [address] 10/17/2024 2:00 PM EST Telemedicine [address] [address] Hannah Cevallos, NATALIE documented as of this [...] documented as of this encounter Care Teams Seasonal Tax Preparer Relationship Specialty Start Date End Date Shashi Salmon MD [address] [place] [address] PCP - General Family Medicine 06/27/17 Puia, Jamilah, PharmD [address] [place] [address] Pharmacist Internal Medicine 08/02/23 04/30/24 Moriah Goldstein Welder ApprenticeCorrectional Supervising Cook 01/10/24 documented as of this encounter
--- OUTSIDE RECORDS SUMMARY | 2024-09-15 15:28 | XMS_ITS | Encounter Summary ---
Author Organization [employer] Address [address] [facility] 7t [place] [address] Care Team Providers Care Idea Man Name Role Phone Name, Shashi JONES Primary Care Provider Jamilah Arreola PharmD Unavailable [phone] Reason for Visit * Reason Comments Med Refill Encounter Details Date Type Department Care Team ([facility] st Contact Info) Description 09/27/2023 Refill [facility] [address] [place], [place] [id number] Name, MD Shashi [address] [place] [address] Social History Tobacco Use Types Packs/Day Years [...] Description 10/08/2024 2:00 PM EST Office Visit [facility] MED[facility]INE [address] [place] [address] Name, MD Shashi [address] [place] [address] 10/17/2024 2:00 PM EST Telemedicine [address] [address] Hannah Cevallos, NATALIE documented as of this [...] documented as of this encounter Care Teams Idea Man Relationship Specialty Start Date End Date Name, MD Shashi [address] [place] [address] PCP - General Family Medicine 06/27/17 Puia, Jamilah, PharmD [address] [place] [address] Pharmacist Internal Medicine 08/02/23 04/30/24 Moriah Goldstein Operating Theatre TechnicianChief Of Field Operations 01/10/24 documented as of this encounter
--- OUTSIDE RECORDS SUMMARY | 2024-09-15 15:28 | XMS_ITS | Encounter Summary ---
Author Organization [employer] [facility] Address [address] [facility] 7t [place] [address] Care Team Providers Care Car Body Designer Name Role Phone Name, Shashi JONES Primary Care Provider [phone] Jamilah Arreola PharmD Unavailable [phone] Reason for Visit * Reason Comments Med Refill Encounter Details Date Type Department Care Team ([facility] st Contact Info) Description 10/11/[address] [facility] [address] [place] [address] Name, MD Shashi [address] [place] [address] Social History Tobacco Use Types Packs/Day Years [...] 2:00 PM EST Office Visit [facility] [address] [place] [address] Name, MD Shashi [address] [place] [address] 10/17/2024 2:00 PM EST Telemedicine [facility] [address] [place] [address] Hannah Cevallos, NATALIE documented as of this [...] documented as of this encounter Care Teams Car Body Designer Relationship Specialty Start Date End Date NameShashi MD [address] [place] [address] PCP - General Family Medicine 06/27/17 Puia, Jamilah, PharmD [address] [place] [address] Pharmacist Internal Medicine 08/02/23 04/30/24 Moriah Goldstein Shot Peen OperatorInseamer 01/10/24 documented as of this encounter
--- OUTSIDE RECORDS SUMMARY | 2024-09-15 15:28 | XMS_ITS | Encounter Summary ---
Author Organization [employer] [facility] Address [address] [facility] 7t [place] [address] Care Team Providers Care Substitute Nurse Name Role Phone Name, Shashi JONES Primary Care Provider [phone] Jamilah Arreola PharmD Unavailable [phone] Reason for Visit * Reason Comments Med Refill Encounter Details Date Type Department Care Team ([facility] st Contact Info) Description 09/03/2023 Refill [facility] [address] [place] [address] Name, MD Shashi [address] [place] [address] Social History Tobacco Use Types Packs/Day Years [...] 2:00 PM EST Office Visit [facility] [address] [place] [address] Name, MD Shashi [address] [place] [address] 10/17/2024 2:00 PM EST Telemedicine [facility] [address] [place] [address] Hannah Cevallos, NATALIE documented as of this [...] documented as of this encounter Care Teams Substitute Nurse Relationship Specialty Start Date End Date NameShashi MD [address] [place] [address] PCP - General Family Medicine 06/27/17 Puia, Jamilah, PharmD [address] [place] [address] Pharmacist Internal Medicine 08/02/23 04/30/24 Moriah Goldstein Vascular Ultrasound TechnicianStorm Sash Maker 01/10/24 documented as of this encounter
--- OUTSIDE RECORDS SUMMARY | 2024-09-15 15:28 | XMS_ITS | Encounter Summary ---
Author Organization [employer] [facility] Address [address] [facility] 7t [place] [address] Care Team Providers Care Managing Consultant Clinical Professor Name Role Phone Name, Shashi JONES Primary Care Provider [phone] Jamilah Arreola PharmD Unavailable [phone] Reason for Visit * Reason Comments Med Refill Encounter Details Date Type Department Care Team ([facility] st Contact Info) Description 10/05/2023 Refill [facility] [address] [place] [address] Name, MD Shashi [address] [place] [address] Social History Tobacco Use Types Packs/Day Years [...] PM EST Office Visit [facility] [address] [place] [address] Name, MD Shashi [address] [place] [address] 10/17/2024 2:00 PM EST Telemedicine [facility] [address] [place] [address] Hannah Cevallos, NATALIE documented as of this [...] documented as of this encounter Care Teams Managing Consultant Clinical Professor Relationship Specialty Start Date End Date NameShashi MD [address] [place] [address] PCP - General Family Medicine 06/27/17 Puia, Jamilah, PharmD [address] [place] [address] Pharmacist Internal Medicine 08/02/23 04/30/24 Moriah Goldstein Finance TeacherMachine Precision Engraver 01/10/24 documented as of this encounter
--- OUTSIDE RECORDS SUMMARY | 2024-09-15 15:28 | XMS_ITS | Clinical Summary ---
Author Organization [employer] Address [address] [facility] 7[address] [place] [address] Care Team Providers Care Tangled Yarn Spool Straightener Name Role Phone Name, Shashi JONES Primary Care Provider [phone] Allergies No known active allergies Medications * This document contains information received from the source organization and may not represent a complete record from that organization. latanoprost (Xalatan) 0.005 % ophthalmic solution PLACE 1 DROP INTO EACH EYE NIGHTLY AT BEDTIME. 023 Active Blood Pressure kitIndications: Essential hypertension Use once a day, as directed, to monitor BP 1 kit 023 Active brimonidine (AlphaGAN P) 0.2 % ophthalmic solution PLACE 1 DROP INTO THE LEFT EYE 2 TIMES A DAY. 023 Active sertraline (Zoloft) 50 MG tablet Take 1 tablet (50 mg) by mouth in the morning for 14 days, THEN 2 tablets (100 mg) in the morning. 023 Active lidocaine (Xylocaine) 5 % ointment Apply topically if needed for mild pain or moderate pain. 50 g 2 024 2024 Active atorvastatin (Lipitor) 20 MG tabletIndicatio ns:Essential hypertension TAKE ONE TABLET BY MOUTH EVERY DAY ^1R1 90 tablet 3 024 Active docusate sodium (Colace) 100 MG capsuleIndicati ons:Essential hypertension TAKE ONE CAPSULE BY MOUTH TWICE A DAY ^1R1,1R4 60 capsule 11 024 Active omega-3 acid ethyl esters (Lovaza) 1 g capsuleIndicati ons:Essential hypertension TAKE ONE CAPSULE BY MOUTH EVERY DAY ^1R1 30 capsule 11 Active omeprazole (PriLOSEC) [address] capsuleIndicati ons:Essential hypertension TAKE ONE CAPSULE BY MOUTH EVERY DAY 30 MINUTES TO 1 HOUR BEFORE MEALS ^1R1 30 capsule 11 Active losartan (Cozaar) 100 MG tablet TAKE ONE TABLET BY MOUTH EVERY MORNING ^1R1 30 tablet 8 Active Diclofenac Sodium 1 % gel APPLY 2 GRAM(S) TOPICALLY TO AFFECTED AREA(S) TWO TIMES A DAY (BULK) 100 g 5 Active Ventolin HFA 108 (90 Base) MCG/ACT inhaler INHALE DANDO DOS SOPLIDOS EVERY 6 HOURS NEEDED FOR SHORTNESS OF BREATH OR WHEEZING FOR 30 DAYS Active dorzolamide-roberta olol (Cosopt) 2-0.5 % ophthalmic solution Administer 1 drop into affected eye(s) 2 times daily. Active moxifloxacin (Vigamox) 0.5 % ophthalmic solution Administer 1 drop into affected eye(s) 4 times daily. Active prednisoLONE acetate (Pred-Forte) 1 % ophthalmic suspension Administer 1 drop into affected eye(s) 4 times daily. Active Wegovy 1 MG/0.5ML solution auto-injector INJECT ONE PEN (=1MG) SUBCUTANEOUSLY ONCE A WEEK DIRECTED 2 mL Active fluticasone furoate (Arnuity Ellipta) 100 MCG/ACT inhalerIndicati ons:Mild intermittent asthma without complication Inhale 1 puff Once per day. Rinse mouth with water after use to reduce aftertaste and incidence of candidiasis. Do not swallow. 1 each 024 2024 Active albuterol (2.5 MG/3ML) 0.083% nebulizer solution Take 3 mL (2.5 mg) by nebulization every 6 (six) hours if needed for wheezing. 75 mL 024 2024 Active naproxen (Naprosyn) 500 MG tabletIndicatio ns:Other chronic pain TAKE ONE TABLET BY MOUTH TWICE A DAY ^1R1,1R4 60 tablet Active amLODIPine (Norvasc) 10 MG tablet TAKE ONE TABLET BY MOUTH EVERY MORNING ^1R1 30 tablet 11 025 Active clonazePAM (KlonoPIN) 1 MG tabletIndicatio ns:Mixed anxiety and depressive disorder TAKE ONE TABLET BY MOUTH EVERY DAY NEEDED FOR ANXIETY (VIAL) 28 tablet 025 2024 Active gabapentin (Neurontin) 100 MG capsule TAKE ONE CAPSULE BY MOUTH EVERY 12 HOURS ^1R1,1R4 60 capsule 5 025 Active naloxone (Narcan) 4 mg/0.1 mL nasal sprayIndication s:Chronic anxiety USE 1 SPRAY INTO THE AFFECTED NOSTRIL ONCE IF NEEDED FOR OPIOID REVERSAL. MAY REPEAT EVERY 2 TO 3 MINUTES IF NEEDED, ALTERNATING NOSTRILS, UNTIL MEDICAL ASSISTANCE BECOMES AVAILABLE. (BULK) 2 each 3 025 Active amLODIPine (Norvasc) 10 MG tablet Take 1 tablet (10 mg) by mouth in the morning. 30 tablet 11 024 2024 Discontinued gabapentin (Neurontin) 100 MG capsule TAKE ONE CAPSULE BY MOUTH EVERY 12 HOURS ^1R1,1R4 60 capsule 5 024 2024 Discontinued naloxone (Narcan) 4 mg/0.1 mL nasal sprayIndication s:Chronic anxiety USE 1 SPRAY INTO THE AFFECTED NOSTRIL ONCE IF NEEDED FOR OPIOID REVERSAL. MAY REPEAT EVERY 2 TO 3 MINUTES IF NEEDED, ALTERNATING NOSTRILS, UNTIL MEDICAL ASSISTANCE BECOMES AVAILABLE. (BULK) 2 each 3 024 2024 Discontinued naproxen (Naprosyn) 500 MG tabletIndicatio ns:Other chronic pain TAKE ONE TABLET BY MOUTH TWICE A DAY ^1R1,1R4 60 tablet 024 2024 Discontinued clonazePAM (KlonoPIN) 1 MG tabletIndicatio ns:Mixed anxiety and depressive disorder TAKE ONE TABLET BY MOUTH EVERY DAY NEEDED FOR ANXIETY (VIAL) 28 tablet 024 2024 Discontinued Active Problems Problem Noted Date Diagnosed Date Legally blind 06/27/2023 Bilateral carpal tunnel syndrome 12/08/2022 Morbid obesity 12/08/2022 Chronic pain 07/11/2022 Hypercholesterolemia 07/11/2022 Anxiety 07/11/2022 Prediabetes 07/11/2022 Urinary incontinence 07/11/2022 Primary open angle glaucoma of right eye, severe stage 01/13/2022 Mild intermittent asthma 10/05/2020 Gait abnormality 05/13/2018 Osteoarthritis 05/13/2018 RAJ (obstructive sleep apnea) 07/31/2017 Essential hypertension 06/28/2017 Knee pain 06/28/2017 Moderate episode of recurrent major depressive d isorder 06/28/2017 Assessment & Plan (04/19/2023 2:25 PM EDT): Assessment: Patient with anhedonia, depressed mood, sleep disturbance, low motivation, crying spells, irritability, panic attacks, anxiousness, guilt and fearfulness in the context of declining medical health. provider will place a new OP therapy referral. PCP will continue prescribing medication. At this time Saniya Gaines meets criteria for Visit Diagnoses: Problem List Items Addressed This Visit Other Anxiety Moderate episode of recurrent major depressive disorder (CMS/HCC) Patient ready to address current needs Yes Strengths include her joan in [employer] PLAN: 1. Follow up with [facility]: Recommended for follow-up: As needed 2. Patient goal is be connected to a therapist 3. Behavioral Recommendations a. Patient will comply with medication b. Patient will utilize skills discussed c. Patient will follow thru on therapy referral d. Patient may reach out to [facility], as needed Resolved Problems Problem Noted Date Diagnosed Date Resolved Date Depressive disorder 04/12/2023 04/14/20 23 Bronchitis 12/08/2022 04/14/2023 Flushing 07/11/2022 04/14/2023 Glaucoma 07/11/2022 04/14/2023 Visual impairment 07/11/2022 06/28/2023 Initial patient encounter 07/11/2022 Body mass index 40.0-44.9, adult 07/11/2022 04/14/2023 Carpal tunnel syndrome 12/12/201704/14 Back pain 08/30/2017 04/14/2023 MALONEY (dyspnea on exertion) 07/12/2017 Abnormal chest x-ray 07/12/2017 023 Sleepiness 06/28/2017 04/14/2023 Generalized anxiety disorder 06/28/2017 04/14/2023 Shoulder pain 06/28/2017 04/14/2023 Snoring 06/28/2017 04/14/2023 Encounters Date Type Department Care Team Description 09/10/2024 Telephone [facility] [place] [address] Shashi Salmon MD Pa 09/04/2024 Refill [facility] [address] [place] [address] Shashi Salmon MD Mixed anxiety and depressive disorder; Other chronic pain 08/31/2024 Refill [facility] [address] [facility] [place] [address] Shashi Salmon MD Other chronic pain; Mixed anxiety and depressive disorder; Chronic anxiety 08/27/2024 Telephone [facility] [address] [place] [address] Hannah Cevallos, NATALIE telephone call 08/08/2024 Refill [facility] [address] [place] [address] Shashi Salmon MD Other chronic pain; Mixed anxiety and depressive disorder; Chronic anxiety 08/07/2024 Telephone [facility] [address] [place] [address] Jayne Cote [place] feb recalls 07/29/2024 Telephone [facility] [place] [address] Shashi Salmon MD Chart Prep 07/24/2024 Travel 07/23/2024 Telephone [facility] [place] [address] Shashi Salmon MD Ultrasound 07/18/2024 Telephone [facility] [place] [address] Karen Howard, NATALIE Med Refill (Wegovy notification) 07/10/2024 Refill [facility] [place] [address] Shashi Salmon MD Other chronic pain; Mixed anxiety and depressive disorder 07/02/2024 Telephone [facility] [address] [place] [address] Shashi Salmon MD PT1 07/01/2024 Telephone [facility] [address] [place] [phone] Shashi Salmon MD PT-1 06/24/2024 Telephone [facility] [address] [place] [phone] Name, MD Shashi PA; Change PCP (Reynaldo) 06/19/2024 Patient Outreach [facility] [address] [place] [address] NameShashi MD Care Coordination (CHW outreach for SDOH PT-1 needs-referral completed /) 06/19/[address] [address] Shashi Salmon MD PT-1 06/16/[address] [address] Name, MD Shashi Other chronic pain from Last 3 Months Immunizations Name Administration Dates Next Due Influenza injectable quadriv alent IIV4 with preservative 05/13/2018,06/28/2017 Influenza injectable quadrivalent preservative f ree 06/27/2023,06/28/2020 Moderna Covid-19 Vaccine 12+ 12/24/2020,11/03/19 21 TD (adult), 2 Lf tetanus tox oid, preservative free, adsorbed 06/28/2017 Social History Tobacco Use Types Packs/Day Years Used Date Smoking Tobacco: Never Tobacco Cessation:Counseling Given: Not Answered Alcohol Use Standard Drinks/Week Comments Never 0 [...] Orientation Straight 06/12/2022 10 :15 AM EDT Last Filed Vital Signs Vital Sign Reading Time Taken Comments Blood Pressure 141/89 05/27/2024 3:05 PM EDT Pulse 92 05/27/2024 2:47 PM EDT Temperature 36.1 ??C (96.9 ??F) 02/21/2024 1:53 PM ED T Respiratory Rate 18 05/27/2024 2:47 PM EDT Oxygen Saturation 98% 05/27/2024 2:47 PM EDT Inhaled Oxygen Concentration - - Weight 159 kg (350 lb) 05/27/2024 2:47 PM EDT Height 154.9 cm (5' 1 ) 05/27/2024 2:47 PM EDT Body Mass Index 66.13 05/27/2024 2:47 PM EDT Plan of Treatment Upcoming Encounters Date Type Department Care Team (Late st Contact Info) Description 10/08/2024 2:00 PM EST Office Visit [facility] [address] [place] [phone] Name, MD Shashi [address] [place] [phone] 10/17/2024 2:00 PM EST Telemedicine [facility] [address] [place] [phone] Hannah Cevallos, RN Health Maintenance Due Date Last Done Comments CT Colonography 1968 Colonoscopy 1968 Colorectal Cancer Screening 1968 FIT DNA/Cologuard 1968 FIT 1968 FOBT 1970 HIV Screening 1970 Sigmoidoscopy 1970 Hepatitis C Screening 02/15/1986 Hepatitis B Vaccines (1 of 3 - 19+ 3-dose series) 02/15/1987 Pneumococcal Vaccine: 50+ Years (1 of 2 - PCV) 02/15/1987 DTaP/Tdap/Td Vaccines (1 - Tdap) 06/29/2017 06/28/2017 Zoster Vaccines (1 of 2) 02/15/2018 SDOH Screening 12/09/2023 12/08/2022 COVID-19 Vaccine (3 - season) 2024 12/24/2020, 11/02/2020 Influenza Vaccine (#1) 2024 , 06/28/2020, 05/13/2018, Additional history exists Depression Monitoring (PHQ-9) 05/11/2024 11/09/2023, 11/09/2023 Diabetes: Hemoglobin A1C 06/27/2024 023, 06/14/2022, 11/09/2021, Additional history exists Depression Screening 11/08/2024 11/09/2023, 11/09/19 24 Alcohol/Substance Use Screening 02/20/2025 02/21/2024 Pap Smear 05/10/2025 05/10/2022 Tobacco Screening 05/27/2025 05/27/2024 Mammogram 09/20/2025 09/20/2023, 03/2023, 09/14/2022, Additional history exists Cervical Cancer Screening 05/10/2027 HPV/Cotest 05/10/2027 05/10/2022, 05/08/2018 Lipid Panel 02/19/2029 02/20/2024, 09/2021, 11/09/2021, Additional history exists RSV Patients and Patients Aged 60 years or older (1 - 1-dose 75+ series) 02/15/2043 HIB Vaccines Aged Out No longer eligi ble based on patient's age to complete this topic HPV Vaccines Aged Out No longer eligi ble based on patient's age to complete this topic Hepatitis A Vaccines Aged Out No long er eligible based on patient's age to complete this topic IPV Vaccines Aged Out No longer eligi ble based on patient's age to complete this topic Meningococcal Vaccine Aged Out No delia sherry eligible based on patient's age to complete this topic RSV under 20 months Aged Out No longe r eligible based on patient's age to complete this topic Rotavirus Vaccines Aged Out No longer eligible based on patient's age to complete this topic Goals Goal Patient Goal Type Associated Problems Recent Progress Patient-Stated? Author Blood Pressure < 140/90 Blood Pressure 141/89( 024 3:05 PM EDT) No Jamilah Arreola PharmD Record your blood pressure once per day Blood Pressure No Jamilah Arreola PharmD Procedures Procedure Name Priority Date/Time Associated Diagnosis Comments LIPID PANEL, STANDARD Routine 02/20/2024 10:40 AM EDT Morbid obesity (CMS/HCC) Legally blind Other secondary osteoarthritis of multiple sites Essential hypertension Hypercholesterolemia BI MAMMOGRAM SCREENING TOMOSYNTHESIS BILATERAL Routine 09/20/2023 11:37 AM EST POCT GLYCATED HEMOGLOBIN, TOTAL Routine 06/27/2023 1:48 PM EST Morbid obesity (CMS/HCC) THINPREP IMAGING PAP AND HPV MRNA E6/E7 WITH REFLEX TO HPV 16,18/45 Routine 05/10/2022 3:44 PM EDT from Last 3 Months or Most Recently Relevant to Health Maintenance Results * (ABNORMAL) Lipid Panel, Standard (02/20/2024 10:40 AM EDT) Triglycerides 136 <150 mg/dL [facility] Comment:Desirable Triglyceri de: less than 150 mg/dLBorderline High Triglyceride 150-199 mg/dLHigh Triglyceride: 200-499 mg/dLVery High Triglyceride: greater than or equal to 5OO mg/dL Cholesterol 181 <200 mg/dL [facility] Comment:Desirable Cholestero l: less than 200 mg/dLBorderline High Cholesterol: 200-239 mg/dLHigh Cholesterol: greater than 239 mg/dL LDL Cholesterol Calculated 117(H) <100 mg/dL [facility] Comment:Desirable LDL: less than 100 mg/dLNear Optimal/Above Optimal LDL: 110- 129 mg/dLBorderline High LDL: 130-159 mg/dLHigh LDL: 160-189 mg/dLVery High LDL: greater than or equal to 190 mg/dL HDL Cholesterol 37(L) >40 mg/dL [facility] Comment:Desirable HDL: great er than 40 mg/dL Note: This HDL assay may give artificially low results in patients with liver disease. Blood Venous blood specimen / Unknown 02/20/2024 10:40 AM EDT 02/20/2024 12:59 PM EDT us Shashi Name MD LAB BLOOD ORDERABLES Final Resul t [facility] [address] [place] [address] [phone] * BI Mammogram Screening Tomosynthesis Bilateral (09/20/2023 11:37 AM EST) Anatomical Region Laterality Modality Breast Bilateral Mammography 09/20/2023 11:3 7 AM EST Narrative 10/15/2023 2:27 PM EST ? [facility] [place] ? [address] ?[place] [address] ? Mammography Report ? Signed ? Patient: Eder,Saniya ?MR#: [id number] ?? [id number] ? : 1970 ?Acct:[id number] ? Age/Sex: 53 / F ?ADM Date: 02/08/24 ? Loc: HO.MAMMO ? Attending Dr: Shashi Name MD ? Ordering Physician: Name,Shashi MD ?Results: 1Negative ? Date of Service: 09/20/23 ?Follow Up: 1 Year From Orig ?? inal Mammogram ? Procedure(s): MM tomosynthesis screening BI ?? Accession Number(s): [id number] ? cc: Name,Shashi JONES ? EXAMINATION: ?? MM SCREENING DIGITAL BREAST TOMOSYNTHESIS, BILATERAL ? CLINICAL INFORMATION: ? Screening. Asymptomatic. ? COMPARISON: ?? Mammography: This study is compared with prior exams dating back to ?? 2018. ? TECHNIQUE: ?? Digital breast tomosynthesis is performed in both the craniocaudal and ?? mediolateral oblique views along with computer-aided detection (CAD). ?? Synthesized 2D images are generated from the tomosynthesis. ? FINDINGS: ?? There are scattered areas of fibroglandular density (ACR BI-RADS breast ?? composition Category b). ? There are no significant masses, abnormal calcifications, or other ?? abnormalities. ? MM/MM tomosynthesis screening BI ?? IMPRESSION: ?? No mammographic evidence of malignancy. ? ASSESSMENT: ? BI-RADS BI-RADS 1 - Negative ? RECOMMENDATION: ?? Routine annual mammography screening. ? 1 year F/U ? This examination should not preclude the clinical evaluation of a ?? suspicious palpable abnormality. ? This patient's information was entered into a reminder system with a ?? target due date for their next mammogram. ? Dictated By: ?Danielle Salvador MD ? Signed By: ?<Electronically signed by Danielle Salvador MD in OV> ? 10/15/231423 ? DD/ 36 ? TD/TT: ? Brass Finisher: ? Procedure Note Kody Turner - 10/15/2023 [facility] [address] [place], [place] [address] Mammography Report Signed Patient: Hai Gaines#: [id number] : 1970Acct:[id number] Age/Sex: 53 / FADM Date: 09/20/23 Loc: HO.MAMMO Attending Dr: Shashi Salmon MD Ordering Physician: Shashi Salmon MDResults: 1Negative Date of Service: 09/20/23Follow Up: 1 Year From Orig inal Mammogram Procedure(s): MM tomosynthesis screening BI Accession Number(s): [id number] cc: Shashi Salmon MD EXAMINATION: MM SCREENING DIGITAL BREAST TOMOSYNTHESIS, BILATERAL CLINICAL INFORMATION: Screening. Asymptomatic. COMPARISON: Mammography: This study is compared with prior exams dating back to 2019. TECHNIQUE: Digital breast tomosynthesis is performed in both the craniocaudal and mediolateral oblique views along with computer-aided detection (CAD). Synthesized 2D images are generated from the tomosynthesis. FINDINGS: There are scattered areas of fibroglandular density (ACR BI-RADS breast composition Category b). There are no significant masses, abnormal calcifications, or other abnormalities. MM/MM tomosynthesis screening BI IMPRESSION: No mammographic evidence of malignancy. ASSESSMENT: BI-RADS BI-RADS 1 - Negative RECOMMENDATION: Routine annual mammography screening. 1 year F/U This examination should not preclude the clinical evaluation of a suspicious palpable abnormality. This patient's information was entered into a reminder system with a target due date for their next mammogram. Dictated By: Danielle Salvador MD Signed By: <Electronically signed by Danielle Salvador MD in OV> 10/15/23 1424 DD/ 1137 TD/TT: Brass Finisher: Shashi Salmon MD IM BI PROCEDURES Final Result * POCT HGB A1C (06/27/2023 1:48 PM EST) Hemoglobin A1C 5.9 4.0 - 6.0 % Other 06/27/2023 1:48 PM EST us Shashi Salmon MD POINT OF CARE TEST ENTER/EDIT OR DERABLES Final Result * THINPREP TIS PAP AND HPV mRNA E6/E7 WITH REFLEX TO HPV 16,18/45 (05/10/2022 3:44 PM EDT) Clinical Information: None given CONVERTED LEGACY LABS COMMENT SEE COMMENT CONVERTE D LEGACY LABS Comment: EXPLANATORY NOTE: ? The Pap is a screening test for cervical cancer. It is ?? not a diagnostic test and is subject to false negative ?? and false positive results. It is most reliable when a ?? satisfactory sample, regularly obtained, is submitted ?? with relevant clinical findings and history, and when ?? the Pap result is evaluated along with historic and ?? current clinical information. ?? COMMENT: This Pap test has been evaluated with computer assisted technology. CONVERTED LEGACY LABS Skein Winding Operator: SEE COMMENT CONVERTED LEGACY LABS Comment: [facility], CT(ASCP) CT screening location: [address] ??[address] HPV nRNA E6/E7 Not Detected Not Detected CONVERTED LEGACY LABS Comment: Methodology: Forming Roll Operator-Mediated Amplification This assay detects E6/E7 viral messenger RNA (mRNA) from 14 high-risk HPV types (16,18,31,33,35,39,45,51,52,56,58,59,66,68). ? Cervical sources are required for HPV testing. If a vaginal source from a patient who has had a total hysterectomy with removal of cervix was ?? submitted, please contact the testing laboratory for alternative testing options. ?? For additional information, please refer to http://education.Lockstream/faq/AEY491w0 (This link if provided for information/ educational purposes only.) Interpretation/Res ult: SEE COMMENT CONVERTED LEGACY LABS Comment: Negative for intraepithelial lesion or malignancy. Atrophic pattern; predominantly parabasal cells LMP: 47 CONVERTED LEGACY LABS Prev. BX: NONE GIVEN CONVERTED LEGACY LABS Prev. PAP: NIL /NEG 2018 CONVE RTED LEGACY LABS SOURCE: None given CONVERTED LEGACY LABS Statement Of Adequacy: SATISFACTORY FOR EVALUATION CONVERTED LEGACY LABS 05/10/2022 3:44 PM EDT Radha Beth CN LAB PATHOLOGY ORDERABLES Final Result CONVERTED LEGACY LABS from Last 3 Months or Most Recently Relevant to Health Maintenance [facility] Care Teams Tangled Yarn Spool Straightener Relationship Specialty Start Date End Date Name, MD Shashi [address] [place] [phone] PCP - General Family Medicine 06/27/17 Moriah Goldstein Pet TrainerCrane Mechanic 01/10/24
--- OUTSIDE RECORDS SUMMARY | 2024-09-15 15:28 | XMS_ITS | Encounter Summary ---
Author Organization [employer] Address [address] [facility] [address] [place] [address] Care Team Providers Care Oyster Shucker Name Role Phone Name, Shashi JONES Primary Care Provider [phone] Jamilah Arreola PharmD Unavailable [phone] Encounter Details Date Type Department Care Team ([facility] st Contact Info) Description 06/06/2023 Abstract [facility] [address] [place] [address] Name, MD Shashi [address] [place] [address] Social History Tobacco Use Types Packs/Day Years [...] Description 10/08/2024 2:00 PM EST Office Visit [facility] [address] [place] [phone] Name, MD Shashi [address] [place] [phone] 10/17/2024 2:00 PM EST Telemedicine [facility] [address] [place] [phone] Hannah Cevallos, NATALIE documented as of this encounter Visit Diagnoses Not on filedocumented in this encounter Additional Health Concerns Assessment Noted Time PHQ-9 Depression Total Score: 10 023 8:36 AM EDT documented as of this encounter Care Teams Oyster Shucker Relationship Specialty Start Date End Date NameShashi MD [address] [place] [phone] PCP - General Family Medicine 06/27/17 Jamliah Arreola PharmD [address] [place] [phone] Pharmacist Internal Medicine 08/02/23 04/30/24 Moriah Goldstein Drafter CastingsMotor Vehicle Assembler 01/10/24 documented as of this encounter
== END ==
LOC: HO.SL 13:54
PROVIDERS: PCP Internal Medicine Geriatric Medicine; Visit Provider Hospitalist
DX: G47.33 Obstructive sleep apnea (adult) (pediatric) (principal)

== ENCOUNTER 2025-03-18 09:01 | Outpatient (AMB) | payer MEDICAID, SELFPAY ==
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
[2025-03-18 09:05] VITALS: BP 124/80; PULSE 94; O2SAT 98; BMI 65.0
--- OUTSIDE RECORDS SUMMARY | 2025-03-18 09:17 | XMS_ITS | Encounter Summary ---
Author Organization [email or web address] Address [address] [place] [address] Care Team Providers Care Elementary Educator Name Role Phone Name, Shashi JONES Primary Care Provider [phone] Sonam Bell Unavailable Reason for Visit * Reason Comments Med Refill Encounter Details Date Type Department Care Team ([facility] st Contact Info) Description 09/04/2024 Refill [facility] [address] [place], [place] [id number] Name, MD Shashi [address] [place] [address] Mixed anxiety and depressive disorder; Other chronic [...] Care Team (Late st Contact Info) Description 03/24/2025 3:30 PM EDT Office Visit [address] [address] NameShashi MD [address] [place] [id number] 04/24/2025 1:30 PM EDT Telemedicine [address] [address] Hannah Cevallos, NATALIE documented as of this encounter Goals Goal Patient Goal Type Associated Problems Recent Progress Patient-Stated? Author Blood Pressure < 140/90 Blood Pressure 132/76( 025 6:14 PM EDT) No Puia, Jamilah, PharmD Record [...] documented as of this encounter Care Teams Elementary Educator Relationship Specialty Start Date End Date NameShashi MD [address] [place] [address] PCP - General Family Medicine 06/27/17 Sonam Bell 02/25/25 Moriah Goldstein Fire Prevention SpecialistGeneral Engineering Teacher 01/10/24 documented as of this encounter
== END 2025-03-18 09:43 | disposition home or self-care (01) ==
LOC: HO.HPS 09:02
PROVIDERS: PCP Internal Medicine Geriatric Medicine; Visit Provider Hospitalist
DX: G47.33 Obstructive sleep apnea (adult) (pediatric) (principal); J45.20 Mild intermittent asthma, uncomplicated; R91.1 Solitary pulmonary nodule
CPT/HCPCS: 99214

== ENCOUNTER → 2025-03-18 09:01 | Outpatient (BNVA) | payer MEDICAID, SELFPAY | PROVIDERS: PCP Internal Medicine Geriatric Medicine; Visit Provider Hospitalist | DX: G47.33 Obstructive sleep apnea (adult) (pediatric) (principal); J45.20 Mild intermittent asthma, uncomplicated; R91.1 Solitary pulmonary nodule; E66.01 Morbid (severe) obesity due to excess calories; Z68.44 Body mass index [BMI] 60.0-69.9, adult | CPT/HCPCS: 99212 ==

== ENCOUNTER 2025-03-24 11:59 | Outpatient (REF) | payer MEDICAID, SELFPAY ==
[2025-03-24 13:27] LABS: MANUAL DIFF FLAG NO
[2025-03-24 13:34] LABS: Hematocrit 43.4 % (37.0-47.0); Hemoglobin 13.8 g/dl (12.0-16.0); Imm Gran Abs Auto 0.05 X10*3/uL (0.00-0.03); Imm Gran Pct Auto 0.7 % (0.0-0.4); Lymphocytes Absolute Auto 2.3 X10*3/uL (1.2-4.9); Mean Corpuscular HGB Conc 31.8 g/dl (31.0-35.0); Mean Corpuscular Hemoglobin 26.6 pg (27.0-33.0); Mean Corpuscular Volume 83.8 fL (80.0-98.0); NRBC Abs Auto 0.000 X10*3/uL (0.0-0.012); NRBC Pct Auto 0.0 /100WBC (0.0-0.2); Platelet Count 280 X10*3/uL (160-400); Red Blood Count 5.18 X10*6/uL (4.20-5.50); White Blood Count 6.8 X10*3/uL (4.8-10.8)
[2025-03-24 14:18] LABS: Alanine Aminotransferase 16 U/L (0-31); Albumin Level 4.3 g/dL (3.5-5.0); Alkaline Phosphatase 100 U/L (39-117); Anion Gap 13 (12-20); Aspartate Amino Transferase 17 U/L (5-31); Blood Urea Nitrogen 14 mg/dL (9-16); Calcium 9.4 mg/dL (8.4-10.2); Carbon Dioxide 28 mmol/L (22-29); Chloride 104 mmol/L (96-108); Estimated Glomerular Filt Rate > 60; Potassium 3.9 mmol/L (3.3-5.1); Sodium 141 mmol/L (135-145); Total Protein 7.5 g/dL (6.5-8.0)
== END 2025-03-24 12:00 | disposition home or self-care (01) ==
LOC: HO.HHCL 11:59
PROVIDERS: PCP Internal Medicine Geriatric Medicine; Visit Provider Internal Medicine Geriatric Medicine
DX: E66.01 Morbid (severe) obesity due to excess calories (principal)
CPT/HCPCS: 36415; 80053; 84443; 85025

== ENCOUNTER 2025-04-28 10:52 | Outpatient (REF) | payer MEDICAID, SELFPAY ==
--- NOTE | ~2025-04-28 | US_ITS ---
EXAMINATION: BILATERAL CAROTID ULTRASOUND WITH DOPPLER HISTORY: Blindness/retinopathy COMPARISON: There are no prior studies available for comparison. TECHNIQUE: Real time and Color and Spectral doppler ultrasonography of the carotid and vertebral arteries was performed in multiple planes. FINDINGS: No significant plaque is identified. VERTEBRAL FLOW DIRECTION: Antegrade bilaterally. PEAK SYSTOLIC VELOCITIES (in cm/sec): RIGHT: CCA: Prox: 69.6 Dist: 72.7 ICA: Prox: 60.0 Mid: 55.5 Dist: Not well visualized ICA/CCA Ratio: 0.82 ECA: 60.4 Peak ICA end diastolic velocity (EDV): 17.2 LEFT: CCA: Prox: 127 Dist: 68.6 ICA: Prox: 46.1 Mid: 73.5 Dist: 85.1 ICA/CCA Ratio: 0.36 ECA: 64.2 Peak ICA end diastolic velocity (EDV): 25.2 US/US carotid duplex BI IMPRESSION: No significant internal carotid artery stenosis bilaterally. Electronically signed by: Rneny Cazares MD 04/28/2025 11:41 AM EDT
== END 2025-04-28 10:53 | disposition home or self-care (01) ==
LOC: HO.US 10:52
PROVIDERS: PCP Internal Medicine Geriatric Medicine; Visit Provider Internal Medicine Geriatric Medicine
DX: H35.00 Unspecified background retinopathy (principal)
CPT/HCPCS: 93880

== ENCOUNTER → 2025-04-28 10:54 | Outpatient (BNV) | payer MEDICAID, SELFPAY | PROVIDERS: PCP Internal Medicine Geriatric Medicine; Visit Provider Radiology Diagnostic Radiology | DX: H53.123 Transient visual loss, bilateral (principal) | CPT/HCPCS: 93880 ==